=== PATIENT | female | born 1995 | race Caucasian/White ===

== ENCOUNTER 2020-08-18 11:55 | Emergency (ER) | payer BC, SELFPAY ==
[2020-08-18 11:59] VITALS: BP 142/76; PULSE 80; RESP 18; TEMP 36.6; O2SAT 97
--- NOTE | 2020-08-18 12:16 | ED.NAVMDI ---
HPI - Nausea/Vomiting/Diarrhea General Chief complaint: Nausea/Vomiting/Diarrhea Stated complaint: vomiting, Time Seen by Provider: 08/18/20 12:03 History of Present Illness HPI Narrative: Patient is a 25-year-old female who presents ER with nausea and vomiting. Ongoing over the last week. Recently diagnosed as being and prescribed Zofran. Zofran does not seem to be helping. Reports she is trying to drink water but is comes immediately out. No fevers or chills or sweats. No vaginal bleeding or discharge. No leakage of fluid. She has no lower abdominal pain. She sees Dr. Ni, she missed her appointment last week. She is a . Related Data Allergies Allergy/AdvReac Type Severity Reaction Status Date / Time No Known Allergies Allergy Verified 08/18/20 12:08 Review of Systems Review of Systems: All systems reviewed & are unremarkable except as noted in HPI and below Constitutional: Constitutional: Denies chills, Denies fever(s) and Denies weakness ENT: Denies nasal congestion and Denies sore throat Respiratory: Respiratory: Denies cough, Denies dyspnea and Denies wheezing Gastrointestinal: Gastrointestinal: Denies abdominal pain, Reports nausea and Reports vomiting Genitourinary: Genitourinary: Denies abnormal vaginal bleeding and Denies dysuria PMFSH Past Medical History Medical History (Updated 08/18/20 @ 14:09 by Raymond Ortiz MD) Healthy female adult Surgical History Surgical History (Updated 08/18/20 @ 12:20 by Raymond Ortiz MD) Previous section Social History Social History (Updated 08/18/20 @ 12:21 by Raymond Ortiz MD) Smoking status: Current every day smoker Exam Narrative: Exam Narrative: GENERAL: Well-appearing, well-nourished, and in no acute distress. HEAD: Normocephalic, atraumatic. ENT: Mucous membranes moist. CHEST: Clear to auscultation. No respiratory distress. HEART: Regular rate and rhythm. Normal peripheral pulses. ABDOMEN: Soft, nontender, nondistended. EXTREMITIES: Normal range of motion. No edema. SKIN: Warm, dry, no rash. NEURO: Alert and oriented x3. Course Course Emergency Course: Patient hydrated and given Phenergan. She is not taking vitamins and would like a prescription. Vital Signs Vital signs: Vital Signs Temperature 97.8 F 08/18/20 11:59 Pulse Rate 80 08/18/20 11:59 Respiratory Rate 18 08/18/20 11:59 Blood Pressure 142/76 H 08/18/20 11:59 Pulse Oximetry 97 08/18/20 11:59 Temperature 97.8 F 08/18/20 11:59 Pulse Rate 84 08/18/20 13:10 Respiratory Rate 18 08/18/20 11:59 Blood Pressure 115/67 08/18/20 13:10 Pulse Oximetry 97 08/18/20 11:59 MDM - Nausea/Vomiting/Diarrhea Lab Data Result diagrams: 08/18/20 12:04 08/18/20 12:04 Labs: Lab Results 08/18/20 08/18/20 08/18/20 Range/Units 12:04 12:04 12:17 WBC 7.0 (4.5-10.0) K/mm3 RBC 4.34 (4.2-5.4) M/mm3 Hgb 14.4 (12.0-15.0) g/dL Hct 41.1 (37.0-47.0) % MCV 94.7 (80-100) fl MCH 33.2 (26-34) pg MCHC 35.0 (32-36) g/dl RDW 13.0 (11.5-14.5) % Plt Count 369 (150-375) k/mm3 MPV 9.8 (7.4-10.4) fl Immature Gran % (Auto) 0.4 (0-0.5) % Neut % (Auto) 84.0 H (45.5-73.1) % Lymph % (Auto) 10.2 L (18.3-44.2) % [place] % (Auto) 5.3 (2.6-8.5) % Eos % (Auto) 0.0 (0-4.4) % Baso % (Auto) 0.1 L (0.2-1.2) % Lymph # (Auto) 1.87 (0.9-3.2) K/mm3 [place] # (Auto) 1.0 H (0.1-0.6) K/mm3 Eos # (Auto) 0.0 (0-0.3) K/mm3 Baso # (Auto) 0.0 (0.0-0.1) K/mm3 Abs Immat Gran (auto) 0.08 H (0.00-0.031) K/mm3 Absolute Neuts (auto) 15.4 H (1.3-6.7) K/mm3 Absolute Nucleated RBC 0.0 (0.0-0.012) K/mm3 Nucleated RBC % 0.0 (0.0-0.2) % Sodium 134 L (137-145) mmol/L Potassium 3.3 L (3.4-5.0) mmol/L Chloride 96 L (98-107) mmol/L Carbon Dioxide 25 (22-30) mmol/L Anion Gap 13 (8-16) mmol/L
[2020-08-18 12:17] LABS: Basophils Percent Auto 0.1 % (0.2-1.2); Hematocrit 41.1 % (37.0-47.0); Hemoglobin 14.4 g/dL (12.0-15.0); Immature Granulocyte Absolute 0.08 K/mm3 (0.00-0.031); Immature Granulocyte Percent A 0.4 % (0-0.5); Lymphocytes Absolute Auto 1.87 K/mm3 (0.9-3.2); Lymphocytes Percent Auto 10.2 % (18.3-44.2); Mean Corpuscular Hemoglobin 33.2 pg (26-34); Mean Corpuscular Volume 94.7 fl (80-100); Mean Platelet Volume 9.8 fl (7.4-10.4); Monocytes Percent Auto 5.3 % (2.6-8.5); Neutrophils Absolute Auto 15.4 K/mm3 (1.3-6.7); Platelet Count Result 369 k/mm3 (150-375); Red Blood Count 4.34 M/mm3 (4.2-5.4)
[2020-08-18] MEDS: SODIUM CHLORIDE 0.9% IV 1,000 ML 999 ML IV CONT (12:17)
[2020-08-18] MEDS: PROMETHAZINE HCL 25 MG/ML AMPUL 12.5 MG IV PUSH (12:17)
[2020-08-18 12:31] LABS: Alanine Aminotransferase 19 U/L (4-35); Albumin Level 4.5 g/dL (3.5-5.1); Alkaline Phosphatase 52 U/L (38-126); Anion Gap 13 mmol/L (8-16); Aspartate Amino Transferase 18 U/L (14-36); Bilirubin,Total 0.5 mg/dL (0.2-1.3); Blood Urea Nitrogen 8 mg/dL (7-17); Carbon Dioxide 25 mmol/L (22-30); Chloride 96 mmol/L (98-107); Estimated CRCL calculation 117 ml/min; Estimated Glomerular Filt Rate > 60; Glucose 117 mg/dL (65-105); Lipase 189 U/L (23-300); Potassium 3.3 mmol/L (3.4-5.0); Sodium 134 mmol/L (137-145)
[2020-08-18 12:50] LABS: Add Urine Microscopic? YES; Appearance Urine Cloudy (Clear); Bacteria Urine Trace /hpf; Bilirubin Urine Negative (Negative); Blood Urine Negative (Negative); Color Urine Yellow (Yellow); Glucose Urine UA Negative (Negative); Ketones Urine 1+ mg/dL (Negative); Leukocyte Esterase Ur Negative LEU/UL (Negative); Mucus Urine Moderate /lpf; Nitrate Urine Negative (Negative); Protein Urine 1+ mg/dL (Negative); RBC Urine 0-2 /hpf (0-2); Specific Grav Ur 1.019 (1.001-1.035); Squamous Epithelial Cell Urine Many /hpf (Few); Urobilinogen Urine Negative mg/dL (<2.0); WBC Urine 0-3 /hpf
[2020-08-18 13:06] VITALS: BP 113/64; PULSE 65
[2020-08-18 13:08] VITALS: BP 113/62; PULSE 60
[2020-08-18 13:10] VITALS: BP 115/67; PULSE 84
[2020-08-18 14:27] VITALS: BP 125/76; PULSE 68; RESP 18; O2SAT 99
== END 2020-08-18 14:28 | disposition home or self-care (01) ==
PROVIDERS: Emergency Medicine; Emergency Provider Emergency Medicine
DX: O21.9 Vomiting of pregnancy, unspecified (principal); Z3A.00 Weeks of gestation of pregnancy not specified
CPT/HCPCS: 36415; 80053; 81001; 81025; 83690; 85025; 96361; 96374; 99284; J2550; J7030

== ENCOUNTER 2020-09-22 10:29 | Emergency (ER) | payer BC, SELFPAY ==
--- NOTE | 2020-09-22 10:40 | ED.NAVMDI ---
HPI - Nausea/Vomiting/Diarrhea General Chief complaint: Nausea/Vomiting/Diarrhea Stated complaint: Vomiting, 16 Weeks Preg Time Seen by Provider: 09/22/20 10:39 Source: patient Mode of arrival: ambulatory Limitations: no limitations History of Present Illness HPI Narrative: Patient is a 25-year-old female, G4, P2, following with Dr. Enamorado, who is currently 16 weeks and presenting for evaluation of recurrent nausea and vomiting. Patient states she has been unable to tolerate any oral intake over the past 48 hours. She has had numerous episodes of nonbilious, nonbloody emesis. She reports dull, crampy-like pain throughout her abdomen. No focal right upper or right lower quadrant abdominal pain. Pt denies vaginal bleeding, discharge, loss of fluids. No contraction like pain. No other complications this , but she has struggled with nausea and vomiting throughout . She denies any diarrhea. No dysuria or hematuria. Pt has been taking zofran without relief of symptoms. Related Data Allergies Allergy/AdvReac Type Severity Reaction Status Date / Time No Known Allergies Allergy Verified 08/18/20 12:08 Review of Systems Review of Systems: Narrative: CONSTITUTIONAL: Denies fever, reports intermittent chills EYES: Denies visual changes, redness, or discharge. ENT: Denies rhinorrhea, congestion, sore throat, or otalgia. CARDIOVASCULAR: Denies chest pain, palpitations, or edema. RESPIRATORY: Denies cough or dyspnea. GASTROINTESTINAL: Reports cramping abdominal pain, nausea and vomiting GENITOURINARY: Denies dysuria or hematuria. SKIN: Denies rash or itching. MUSCULOSKELETAL: Denies back pain, joint pain, or myalgia. NEUROLOGIC: Denies headache, numbness, or weakness. [facility] Past Medical History Medical History Healthy female adult Nausea and vomiting during Surgical History Surgical History Previous section Social History Social History Smoking status: Current every day smoker Exam Narrative: Exam Narrative: GENERAL: Awake, alert, mildly uncomfortable appearing HEAD: Normocephalic, atraumatic. EYES: PERRLA and EOMI. ENT: Nares clear, no rhinorrhea or epistaxis. Mucous membranes moist. NECK: Supple. CHEST: No respiratory distress, breathing even and non labored HEART: Regular rate, sinus rhythm ABDOMEN: Fundus palpable below the umbilicus, non tender, no suprapubic tenderness EXTREMITIES: Normal range of motion. No edema. SKIN: Warm, dry, no rash. NEURO:No focal deficits. Alert and oriented x3 Course Vital Signs Vital signs: Vital Signs Temperature 36.1 C L 09/22/20 11:03 Pulse Rate 117 H 09/22/20 11:03 Respiratory Rate 18 09/22/20 11:03 Blood Pressure 127/102 H 09/22/20 11:03 Pulse Oximetry 100 09/22/20 11:03 Temperature 36.1 C L 09/22/20 11:03 Pulse Rate 76 09/22/20 14:41 Respiratory Rate 18 09/22/20 14:41 Blood Pressure 124/91 H 09/22/20 14:41 Pulse Oximetry 100 09/22/20 14:41 MDM - Nausea/Vomiting/Diarrhea MDM Narrative Medical decision making narrative: Patient presented for evaluation of nausea and vomiting in the setting of . Patient has struggled with this throughout , states last oral intake was over 2 days ago. Patient presents mildly tachycardic, no hypotension. No focal abdominal pain on exam. Bedside ultrasound utilized which showed good movement, heart rate 158. Laboratory results notable for leukocytosis. Urinalysis slightly concerning for possible UTI versus contaminated sample. Given patient is in and white count, we will go ahead and treat with a dose of IV antibiotics. No lactic acidosis. No signs of severe sepsis or septic shock. Patient was given IV fluids, dextrose/saline, Pepcid, Reglan with improvement in he
[2020-09-22] MEDS: SODIUM CHLORIDE 0.9% IV 1,000 ML 999 ML IV CONT ×2 (10:54→14:55)
[2020-09-22] MEDS: FAMOTIDINE 20 MG/2 ML VIAL IV PUSH (10:56)
[2020-09-22 10:57] LABS: Basophils Percent Auto 0.2 % (0.2-1.2); Hematocrit 40.2 % (37.0-47.0); Hemoglobin 14.2 g/dL (12.0-15.0); Immature Granulocyte Absolute 0.09 K/mm3 (0.00-0.031); Immature Granulocyte Percent A 0.5 % (0-0.5); Lymphocytes Absolute Auto 0.95 K/mm3 (0.9-3.2); Lymphocytes Percent Auto 5.7 % (18.3-44.2); Mean Corpuscular HGB Conc 35.3 g/dl (32-36); Mean Corpuscular Hemoglobin 33.3 pg (26-34); Mean Corpuscular Volume 94.4 fl (80-100); Mean Platelet Volume 9.9 fl (7.4-10.4); Monocytes Absolute Auto 0.2 K/mm3 (0.1-0.6); Monocytes Percent Auto 1.2 % (2.6-8.5); Neutrophils Absolute Auto 15.5 K/mm3 (1.3-6.7); Neutrophils Percent Auto 92.4 % (45.5-73.1); Platelet Count Result 303 k/mm3 (150-375); Red Blood Count 4.26 M/mm3 (4.2-5.4); Red Cell Distribution Width 12.9 % (11.5-14.5); White Blood Count 16.8 K/mm3 (4.5-10.0)
[2020-09-22] MEDS: diphenhydrAMINE HCl INJ 50 MG/ML VIAL 25 MG IV PUSH (10:58)
[2020-09-22] MEDS: METOCLOPRAMIDE HCL INJ 10 MG/2 ML VIAL IV PUSH (10:59)
[2020-09-22 11:03] VITALS: BP 127/102; PULSE 117; RESP 18; TEMP 36.1; O2SAT 100
[2020-09-22 11:04] LABS: Add Urine Microscopic? YES; Appearance Urine Cloudy (Clear); Bilirubin Urine Negative (Negative); Blood Urine Negative (Negative); Color Urine Yellow (Yellow); Glucose Urine UA 1+ mg/dL (Negative); Ketones Urine 2+ mg/dL (Negative); Leukocyte Esterase Ur 1+ LEU/UL (Negative); Mucus Urine Moderate /lpf; Nitrate Urine Negative (Negative); Protein Urine 2+ mg/dL (Negative); Specific Grav Ur 1.031 (1.001-1.035); Squamous Epithelial Cell Urine Many /hpf (Few); Urobilinogen Urine Negative mg/dL (<2.0)
[2020-09-22 11:09] LABS: Alanine Aminotransferase 14 U/L (4-35); Albumin Level 4.5 g/dL (3.5-5.1); Alkaline Phosphatase 56 U/L (38-126); Anion Gap 13 mmol/L (8-16); Aspartate Amino Transferase 19 U/L (14-36); Bilirubin,Total 0.5 mg/dL (0.2-1.3); Blood Urea Nitrogen 11 mg/dL (7-17); Calcium 9.6 mg/dL (8.4-10.2); Carbon Dioxide 23 mmol/L (22-30); Chloride 98 mmol/L (98-107); Estimated CRCL calculation 117 ml/min; Estimated Glomerular Filt Rate > 60; Glucose 136 mg/dL (65-105); Lipase 63 U/L (23-300); Potassium 3.6 mmol/L (3.4-5.0); Sodium 134 mmol/L (137-145)
[2020-09-22 12:12] LABS: Lactic Acid Reflex 1.5 mmol/L (0.7-2.1)
[2020-09-22] MEDS: DEXTROSE 5%/0.45% SOD CHL 1,000 ML 100 ML IV CONT (12:16)
[2020-09-22 12:30] VITALS: BP 126/74; PULSE 89; RESP 18; O2SAT 100
--- NOTE | 2020-09-22 14:39 | PC.NURSE ---
This RN to discharge pt. PT states she threw up the ice chips that were given to her. Informed Dr. Cope of this and she states she will go talk to pt.
[2020-09-22 14:41] VITALS: BP 124/91; PULSE 76; RESP 18; O2SAT 100
[2020-09-22] MEDS: PROMETHAZINE HCL 25 MG/ML AMPUL 12.5 MG IV PUSH (14:55)
[2020-09-22 16:39] LABS: Amphetamine Screen Urine Negative (Negative); Barbiturate Screen Urine Negative (Negative); Benzodiazepines Screen Urine Negative (Negative); Cannabinoid Screen Urine Positive (Negative); Cocaine Screen Urine Negative (Negative); Methadone Screen Urine Negative (Negative); Opiate Screen Urine Negative (Negative); Phencyclidine Screen Urine Negative (Negative)
== END 2020-09-22 16:43 | disposition home or self-care (01) ==
PROVIDERS: Emergency Provider Emergency Medicine
DX: O21.1 Hyperemesis gravidarum with metabolic disturbance (principal); O23.12 Infections of bladder in pregnancy, second trimester; O99.332 Smoking (tobacco) complicating pregnancy, second trimester; F17.200 Nicotine dependence, unspecified, uncomplicated; Z3A.16 16 weeks gestation of pregnancy
CPT/HCPCS: 36415; 80053; 80307; 81001; 83605; 83690; 85025; 87040; 96361; 96365; 96375; 99284; J0696; J1200; J2550; J2765; J7030

== ENCOUNTER 2020-11-03 08:40 | Outpatient (CLI) | payer BC, SELFPAY ==
--- NOTE | ~2020-11-03 | US_ITS ---
EXAMINATION: US OB /maternal detail EXAM DATE: 11/03/2020 09:57 INDICATION: Routine evaluation. 2nd trimester. TECHNIQUE: Pelvic obstetrical transabdominal sonogram was performed by a technologist. There are mu ltiple grayscale and Doppler images available for interpretation. There are no earlier studies of is gestation for comparison. FINDINGS: There is a single fetus identified in vertex presentation with a heart rate of 157 beats pe r minute. The placenta is located in the anterior previa position, partially covering the internal ce rvical os. There is no sonographic evidence of retroplacental hemorrhage identified. BIOMETRIC DATA: Biparietal diameter (BPD): 5.8cm ----------------> 23 weeks 6 days. Head circumference (HC): 22.5 cm ----------------> 24 weeks 4 days. Abdominal circumference (AC): 18.4 cm ----------> 23 weeks 1 day. Femur length (FL): 4.3 cm --------------------------> 24 weeks 0 days. These measurements are discordant, mildly elevated HC/AC ratio. HC/AC ratio is 1.22 (The 5th -- 95th percentile range is 1.05-1.21. Estimated weight is 617 g +/- 92 g. This is the 53rd percentile when the currently reported cl inical gestation age 23 weeks 3 days, clinical estimated date of delivery ([facility]-OPE) 02/27/2021 is used . estimated gestational age based on measurements from this exam is 23 weeks 6 days, with an es timated date of delivery ([facility]A) 02/24. ANATOMIC SURVEY: The following anatomy is identified and is sonographically normal in appearance: CTL-spine Four-chamber heart Diaphragm Stomach Kidneys Bladder Three-vessel cord Cord insertion The following anatomy was not well visualized: Cerebral ventricles Cerebellum Cisterna magna Nuchal fold IMPRESSION: 1. Single fetus in vertex presentation with heart rate 157 beats per minute. 2. Anterior previa placental position, margin is covering the internal cervical os. 3. Estimated weight of 617 grams, 53rd percentile using the currently reported clinical gestat ion age of 23 weeks 3 days, NASH(OPE) 02/27. 4. Elevated HC/AC ratio. 5. Incomplete anatomic survey; head poorly evaluated. Reviewed, dictated and finalized at location A. IMPRESSION: 1. Single fetus in vertex presentation with heart rate 157 beats per minute. 2. Anterior previa placental position, margin is covering the internal cervica l os. 3. Estimated weight of 617 grams, 53rd percentile using the currently re ported clinical gestation age of 23 weeks 3 days, NASH(OPE) 02/27. 4. Elevated HC/AC ratio. 5. Incomplete anatomic survey; head poorly evaluated.
== END 2020-11-03 08:41 | disposition home or self-care (01) ==
PROVIDERS: Visit Provider Obstetrics & Gynecology
DX: Z34.92 Encounter for supervision of normal pregnancy, unspecified, second trimester (principal); Z3A.00 Weeks of gestation of pregnancy not specified
CPT/HCPCS: 76805

== ENCOUNTER 2020-12-27 12:49 | Emergency (ER) | payer BC, SELFPAY ==
[2020-12-27] VITALS (8 sets, daily range): BP systolic 114–132; BP diastolic 54–71; PULSE 65–88; RESP 16–18; TEMP 36.4; O2SAT 96–100
--- NOTE | 2020-12-27 13:32 | ED.GENADULT ---
HPI - General Adult General Chief complaint: Nausea/Vomiting/Diarrhea Stated complaint: ongoing vomiting. Time Seen by Provider: 12/27/20 13:02 History of Present Illness HPI narrative: Patient is a 25-year-old female who is 31 weeks gestation who presents ER with nausea and vomiting. Ongoing for the last day. Reports she has vomited innumerable number of times. Reports she also has acid reflux associated with this. No loose stools. She has been taking promethazine without relief at home. Has had issues with vomiting that is caused to be hypokalemic in the past. She reports she is starting to get some tingling in her fingers. No muscle cramps or focal weakness. She has no urinary frequency urgency or dysuria. She has no vaginal bleeding. She sees Dr. Enamorado. Related Data Allergies Allergy/AdvReac Type Severity Reaction Status Date / Time No Known Allergies Allergy Verified 12/27/20 13:39 Review of Systems Review of Systems: All systems reviewed & are unremarkable except as noted in HPI and below Constitutional: Constitutional: Denies chills, Reports fatigue and Denies fever(s) Gastrointestinal: Gastrointestinal: Denies abdominal pain, Denies diarrhea, Reports nausea and Reports vomiting Genitourinary: Genitourinary: Denies abnormal vaginal bleeding, Denies nocturia and Denies vaginal discharge Musculoskeletal: Musculoskeletal: Denies myalgias, Denies joint swelling and Denies muscle cramps Neurologic: Denies focal weakness and Denies numbness Comments: tingling in hands PMFSH Past Medical History Medical History Healthy female adult Nausea and vomiting during Surgical History Surgical History Previous section Social History Social History Smoking status: Current every day smoker Exam Narrative: Exam Narrative: GENERAL: Well-appearing, well-nourished, and in no acute distress. HEAD: Normocephalic, atraumatic. ENT: Mucous membranes moist. CHEST: Clear to auscultation. No respiratory distress. HEART: Regular rate and rhythm. Normal peripheral pulses. ABDOMEN: Soft, nontender, gravid. EXTREMITIES: Normal range of motion. No edema. NEURO: Alert and oriented x3. PSYCH: Normal mood and affect. Course Course Emergency Course: Patient tolerating food and fluids. No emesis here. She has follow-up with her OB in 2 days. Discharge home with [facility]. Father has famotidine that he can give to the patient. Vital Signs Vital signs: Vital Signs Temperature 97.5 F L 12/27/20 12:52 Pulse Rate 66 12/27/20 12:52 Respiratory Rate 18 12/27/20 12:52 Blood Pressure 120/67 12/27/20 12:52 Pulse Oximetry 100 12/27/20 12:52 Temperature 97.5 F L 12/27/20 12:52 Pulse Rate 86 12/27/20 16:23 Respiratory Rate 18 12/27/20 16:23 Blood Pressure 129/67 12/27/20 16:23 Pulse Oximetry 98 12/27/20 16:23 Medical Decision Making Vital Signs Vital Signs: Vital Signs Temperature 97.5 F L 12/27/20 12:52 Pulse Rate 66 12/27/20 12:52 Respiratory Rate 18 12/27/20 12:52 Blood Pressure 120/67 12/27/20 12:52 Pulse Oximetry 100 12/27/20 12:52 Temperature 97.5 F L 12/27/20 12:52 Pulse Rate 86 12/27/20 16:23 Respiratory Rate 18 12/27/20 16:23 Blood Pressure 129/67 12/27/20 16:23 Pulse Oximetry 98 12/27/20 16:23 Lab Data Result diagrams: 12/27/20 13:40 12/27/20 13:40 Labs: Lab Results 12/27/20 12/27/20 12/27/20 Range/Units 13:40 13:40 13:40 WBC 14.7 H (4.5-10.0) K/mm3 RBC 3.71 L (4.2-5.4) M/mm3 Hgb 12.1 (12.0-15.0) g/dL Hct 35.2 L (37.0-47.0) % MCV 94.9 (80-100) fl MCH 32.6 (26-34) pg MCHC 34.4 (32-36) g/dl RDW 12.4 (11.5-14.5) % Plt Count 229 (150-375) k/mm3 MPV 10.7 H (7.4-10.4) fl Immatu
[2020-12-27] MEDS: ONDANSETRON INJ 4 MG/2 ML VIAL IV PUSH (13:43)
[2020-12-27] MEDS: SODIUM CHLORIDE 0.9% IV 1,000 ML 999 ML IV CONT (13:43)
[2020-12-27] MEDS: FAMOTIDINE 20 MG/2 ML VIAL IV PUSH (13:43)
[2020-12-27 13:48] LABS: Basophils Percent Auto 0.1 % (0.2-1.2); Hematocrit 35.2 % (37.0-47.0); Hemoglobin 12.1 g/dL (12.0-15.0); Immature Granulocyte Absolute 0.07 K/mm3 (0.00-0.031); Immature Granulocyte Percent A 0.5 % (0-0.5); Lymphocytes Absolute Auto 0.97 K/mm3 (0.9-3.2); Lymphocytes Percent Auto 6.6 % (18.3-44.2); Mean Corpuscular HGB Conc 34.4 g/dl (32-36); Mean Corpuscular Hemoglobin 32.6 pg (26-34); Mean Corpuscular Volume 94.9 fl (80-100); Mean Platelet Volume 10.7 fl (7.4-10.4); Monocytes Absolute Auto 0.5 K/mm3 (0.1-0.6); Monocytes Percent Auto 3.1 % (2.6-8.5); Neutrophils Absolute Auto 13.1 K/mm3 (1.3-6.7); Neutrophils Percent Auto 89.7 % (45.5-73.1); Platelet Count Result 229 k/mm3 (150-375); Red Blood Count 3.71 M/mm3 (4.2-5.4); Red Cell Distribution Width 12.4 % (11.5-14.5); White Blood Count 14.7 K/mm3 (4.5-10.0)
[2020-12-27 13:53] LABS: Add Urine Microscopic? YES; Appearance Urine Clear (Clear); Bacteria Urine Trace /hpf; Bilirubin Urine Negative (Negative); Blood Urine Negative (Negative); Color Urine Yellow (Yellow); Glucose Urine UA Negative (Negative); Ketones Urine 2+ mg/dL (Negative); Leukocyte Esterase Ur Negative LEU/UL (Negative); Mucus Urine Few /lpf; Nitrate Urine Negative (Negative); Protein Urine 2+ mg/dL (Negative); Squamous Epithelial Cell Urine Few /hpf (Few); Urobilinogen Urine Negative mg/dL (<2.0); WBC Urine 0-3 /hpf
[2020-12-27 14:06] LABS: Alanine Aminotransferase 10 U/L (4-35); Albumin Level 3.9 g/dL (3.5-5.1); Alkaline Phosphatase 110 U/L (38-126); Anion Gap 11 mmol/L (8-16); Aspartate Amino Transferase 17 U/L (14-36); Bilirubin,Total 0.5 mg/dL (0.2-1.3); Blood Urea Nitrogen 10 mg/dL (7-17); Calcium 8.8 mg/dL (8.4-10.2); Carbon Dioxide 19 mmol/L (22-30); Chloride 105 mmol/L (98-107); Estimated CRCL calculation 131 ml/min; Estimated Glomerular Filt Rate > 60; Glucose 111 mg/dL (65-105); Lipase 55 U/L (23-300); Potassium 3.3 mmol/L (3.4-5.0); Sodium 135 mmol/L (137-145)
[2020-12-27] MEDS: SODIUM CHLORIDE 0.9% IV 50 ML 500 ML (15:15)
[2020-12-27] MEDS: PROMETHAZINE HCL 25 MG/ML AMPUL 12.5 MG IV PUSH (15:15)
== END 2020-12-27 17:02 | disposition home or self-care (01) ==
PROVIDERS: Emergency Provider Emergency Medicine; PCP Internal Medicine
DX: O21.2 Late vomiting of pregnancy (principal); Z3A.31 31 weeks gestation of pregnancy
CPT/HCPCS: 36415; 80053; 81001; 81025; 83690; 85025; 96361; 96374; 96375; 99284; J2405; J2550; J7030

== ENCOUNTER 2021-01-01 10:27 | Observation (INO) | payer BC, SELFPAY ==
[2021-01-01] VITALS (33 sets, daily range): BP systolic 99–124; BP diastolic 51–62; PULSE 69–98; RESP 16; TEMP 36.9; O2SAT 100; BMI 21.2
[2021-01-01] MEDS: TERBUTALINE SULFATE 1 MG/ML VIAL 0.25 MG SUB-Q (11:10)
[2021-01-01] MEDS: LACTATED RINGERS 1,000 ML 75 ML IV CONT (11:29)
[2021-01-01 11:30] LABS: Hematocrit 35.5 % (37.0-47.0); Hemoglobin 12.2 g/dL (12.0-15.0); Mean Corpuscular HGB Conc 34.4 g/dl (32-36); Mean Corpuscular Hemoglobin 32.9 pg (26-34); Mean Corpuscular Volume 95.7 fl (80-100); Mean Platelet Volume 9.8 fl (7.4-10.4); Platelet Count Result 240 k/mm3 (150-375); Red Blood Count 3.71 M/mm3 (4.2-5.4); Red Cell Distribution Width 12.4 % (11.5-14.5); White Blood Count 13.9 K/mm3 (4.5-10.0)
--- NOTE | 2021-01-01 11:30 | PC.NURSE ---
See OBIX for further documentation.
--- NOTE | 2021-01-01 11:30 | OBADM ---
This patient, Fabi Padilla, admitted to the OB room OB Post 117 at 1027 for observation for vaginal bleeding. Patient/family oriented to hospital policies and general routines including ID bracelet, bed and alarms, visiting hours, pain management, procedures, bathroom and other care routines, personal items, smoking policy, room service/diet, and visiting hours. Patient/Family are encouraged to report perceived risks to care and to ask questions if they do not understand what they are told or what they should do.
[2021-01-01] MEDS: MAGNESIUM SULF 4 GM/WATER100ML 4 GM/100 ML BAG IVPB (11:32)
--- NOTE | 2021-01-01 11:33 | PM.IMHP ---
H&P: HPI History of Present Illness Date/Time: 01/01/21 11:33 Chief Complaint: abdominal pain and vaginal bleeding Narrative: Fabi Padilla is a 25yo @ 31.6wks who presented to L&D with painful contractions since 430am and vaginal bleeding that started at 930; large volume-- filled the toilet bowl. On arrival to L&D she was found to be george every 2-3 min; moderate in intensity; 6/10 pain scale. She has not been actively bleeding ~5cc on the pad (had previously passed small orange size clot w/ small amount of blood on labia/upper legs). She was given terb x1 while obtaining access to give magnesium and ampicillin; also given ANCS x1. Contractions have spaced out nicely. Speculum exam reviewed ~3cc of blood in the vault; cervix visually 1-2cm dilated, no active bleeding. Baby has been category 2 tracing; overall reassuring. complicated by: - H/o c/s x2 - Anterior placenta previa; abnormal placentation has not been ruled out - H/o PTD x1 - Minimal care; 3 visits in total - H/o meth abuse; denies any this -- does report MJ use - Complex social history; does not have custody of two children - Bipolar/anxiety/depression - Mild intermittent asthma - IBS Review of Systems Review of Systems: All systems reviewed & are unremarkable except as noted in HPI and below (HPI) [facility] Past Medical History Medical History Healthy female adult Nausea and vomiting during Surgical History Surgical History Previous section Social History Social History Smoking status: Current every day smoker Meds Home Medications and Allergies Home Medications Medication Instructions Recorded Confirmed Type [id number] 1 cap PO DAILY #30 cap 08/18/20 Rx [One-A-Day -1] ondansetron HCl [Zofran] 4 mg PO Q8H #14 tablet 12/27/20 Rx Allergies Allergy/AdvReac Type Severity Reaction Status Date / Time No Known Allergies Allergy Verified 12/27/20 13:39 Vital Signs Vital Signs - 24 hr 01/01/21 11:01 01/01/21 11:06 01/01/21 11:11 Pulse Rate 74 73 Blood Pressure 113/57 L 113/54 L Pulse Oximetry 100 100 01/01/21 11:16 01/01/21 11:21 01/01/21 11:26 Pulse Rate Blood Pressure Pulse Oximetry 100 100 100 01/01/21 11:31 Pulse Rate 91 Blood Pressure 99/53 L Pulse Oximetry 100 Exam Const: General: cooperative, healthy appearing, comfortable and no acute distress HENMT: Teeth and gingiva: poor dentition Resp: Effort & Inspection: normal respiratory effort and able to speak in complete sentences Cardio: Rate: regular rate GI: GI Palp: No abdominal tenderness and Yes Soft to palpation : Other: FHT's: 155/ mod toyin/ + accels/ occasional mild variables - cat 2, reassuring Ctxs intially q2-3min, now 2 noted in 20min speculum exam showed ~3cc of blood in vault; cervix 1-2cm dilated, no active bleeding Skin: General skin exam: normal color Neuro: General: patient oriented x3 Extrem: General: normal to inspection Psych: Attitude: cooperative Assessment and Plan Assessment and plan (1) Previous section: Code(s): Z98.891 - History of uterine scar from previous surgery Status: Acute (2) Placenta previa: Qualifiers: Trimester: third trimester Qualified Code(s): O44.03 - Complete placenta previa NOS or without hemorrhage, third trimester Code(s): O44.00 - Complete placenta previa NOS or without hemorrhage, unspecified trimester Status: Acute (3) Vaginal bleeding during : Code(s): O46.90 - Antepartum hemorrhage, unspecified, unspecified trimester Status: Acute (4) contractions: Code(s): O47.9 - False labor, unspecified Status: Acute Additional Plan - Pt evaluat
[2021-01-01] MEDS: BETAMETHASONE SOD PHOS/ACETATE 30 MG/5 ML VIAL 12 MG IM (11:36)
[2021-01-01] MEDS: AMPICILLIN 2 GM/NS 100 ML 2 GM/100 ML BAG IVPB (11:47)
[2021-01-01] MEDS: MAGNESIUM SULF 20GM/WATER500ML 500 ML 50 MG IV CONT (12:02)
== END 2021-01-01 14:10 | disposition short-term general hospital (02) ==
LOC: ANHLDR 19:42 → ANHOBPP 01-02 12:38
PROVIDERS: Admitting Provider Obstetrics & Gynecology; PCP Internal Medicine; Visit Provider Obstetrics & Gynecology
DX: O44.13 Complete placenta previa with hemorrhage, third trimester (principal); O47.03 False labor before 37 completed weeks of gestation, third trimester; Z3A.31 31 weeks gestation of pregnancy; Z98.891 History of uterine scar from previous surgery
CPT/HCPCS: 36415; 85027; 86850; 86900; 86901; 96365; 96366; 96368; 96372; G0378; G0379; J0290; J0702; J3105; J3475; J7120

== ENCOUNTER 2021-01-13 15:00 | Outpatient (RCR) | payer BC, SELFPAY ==
--- NOTE | ~2021-01-13 | US_ITS ---
EXAMINATION: US OB BPP wo non-stress EXAM DATE: 01/13/2021 16:08 INDICATION: BPP for IUGR. 3rd trimester. TECHNIQUE: Pelvic obstetrical transabdominal sonogram was performed by a technologist. There are mu ltiple grayscale and Doppler images available for interpretation. Comparison is made to prior examina tion from 11/03/2020. FINDINGS: There is a single fetus identified in vertex presentation with a heart rate of 152 beats pe r minute. The placenta is located in the anterior previa position, covering the internal cervical os. There is no sonographic evidence of retroplacental hemorrhage identified. BIOPHYSICAL PROFILE (performed by the technologist) breathing (30 sec sustained breathing in 30 minutes): 2 out of 2 movement (3 gross body movements in 30 minutes): 2 out of 2 tone (one episode of ttxhljj-wzvleehsm-yeieqsb limb movement): 2 out of 2 Amniotic fluid pocket (2 cm): 2 out of 2 Total score: 8 out of 8 IMPRESSION: 1. Persistent placenta previa. 2. Single fetus with heart rate of 152 bpm. 3. Normal biophysical profile score of 8 out of 8. Reviewed, dictated and finalized at location A.
[2021-01-13 16:19] VITALS: BP 113/57; PULSE 85
== END 2021-01-30 15:22 | disposition home or self-care (01) ==
LOC: ANHOBOP 15:00
PROVIDERS: PCP Internal Medicine; Visit Provider Obstetrics & Gynecology
DX: O36.5930 Maternal care for other known or suspected poor fetal growth, third trimester, not applicable or unspecified (principal); O44.03 Complete placenta previa NOS or without hemorrhage, third trimester; Z3A.33 33 weeks gestation of pregnancy
CPT/HCPCS: 59025; 76819

== ENCOUNTER 2021-01-14 08:22 | Inpatient (IN) | payer BC, SELFPAY ==
[2021-01-14] VITALS (14 sets, daily range): BP systolic 98–116; BP diastolic 48–77; PULSE 63–88; RESP 16; TEMP 36.6–37.2; O2SAT 99–100; BMI 23.4
[2021-01-14] MEDS: OXYTOCIN 30 UNITS/NS 500 ML 30 UNITS/500 ML BAG 999 UNITS IV CONT (08:29)
--- NOTE | 2021-01-14 09:00 | LDADM ---
This patient, Fabi Padilla, was admitted to Labor/Delivery/Recovery 106 on 01/14/21 at 08:22 per [facility] Department ambulance after home delivery at 0759 today of a viable female infant. Apgars per paramedics were 7 & 8. 33 5/7 wks gestation. Plans for recovery and pain management were discussed with patient. Patient oriented to hospital policies and general routines including ID bracelet, bed and alarms, visiting hours, pain management, procedures, bathroom and other care routines, personal items, smoking policy, room service/diet and guest tray routines, infant security routines, and visiting hours. Patient are encouraged to report perceived risks to care and to ask questions if they do not understand what they are told or what they should do. See OBIX for further documentation.
[2021-01-14] MEDS: IBUPROFEN 600 MG TABLET PO ×3 (09:05→23:38)
[2021-01-14] MEDS: OXYTOCIN 30 UNITS/NS 500 ML 30 UNITS/500 ML BAG 125 UNITS IV CONT (09:05)
--- NOTE | 2021-01-14 09:24 | PM.IMHP ---
H&P: HPI History of Present Illness Date/Time: 01/14/21 09:24 25yo at 33w5d presented to L&D after an incidental home attended by EMS. She states she started to have contractions in the morning and her water broke. She called EMS and by the time the EMS arrived, baby was . Vaignal delivery by EMS at 0759. She was then transferred to L&D for further management. Placenta was delivered on L&D attended by the L&D nurses. Currently she states she is feeling a lot of cramping. There was a concern of placenta previa early in , but most recent US done at [place] in the last 2 weeks showed no previa. Chief Complaint: home vaginal delivery Review of Systems Constitutional: Constitutional: Reports no additional constitutional complaints ENT: Reports mouth pain (tooth abscess) Cardiovascular: Cardiovascular: Reports no additional cardiovascular complaints Respiratory: Respiratory: Reports no additional respiratory complaints Gastrointestinal: Gastrointestinal: Reports GI cramping Genitourinary: Comments: vaginal bleeding Musculoskeletal: Musculoskeletal: Reports no additional musculoskeletal complaints Integumentary/Breasts: Skin/Breast: Reports system reviewed and no additional complaints, except as docu Neurologic: Reports system reviewed and no additional complaints, except as documented Psychiatric: Psychiatric: Reports no additional psychiatric complaints Endocrine: Endocrine: Reports no additional endocrine complaints Hematologic/Lymphatic: Hematologic/Lymphatic: Reports no additional hematologic/lymphatic complaints Allergic/Immunologic: Allergic/Immunologic: Reports no additional allergic/immunologic complaints PMF Past Medical History Medical History Healthy female adult Nausea and vomiting during Surgical History Surgical History Previous section Social History Social History (Updated 01/14/21 @ 09:29 by Humble Lemus DO) Smoking status: Current every day smoker Other substance usage details: Marijuana Last use: 1 day ago Meds Home Medications and Allergies Home Medications Medication Instructions Recorded Confirmed Type M- Plus 1 tablet PO DAILY 01/01/21 01/01/21 History ondansetron HCl [Zofran] 4 mg PO Q8H PRN 01/01/21 01/01/21 History Allergies Allergy/AdvReac Type Severity Reaction Status Date / Time No Known Allergies Allergy Verified 12/27/20 13:39 Vital Signs Vital Signs - 24 hr 01/14/21 08:35 01/14/21 08:45 01/14/21 09:00 Pulse Rate 88 75 78 Blood Pressure 116/48 L 116/59 L 113/62 01/14/21 09:15 Pulse Rate 87 Blood Pressure 113/62 Exam Const: General: cooperative, comfortable and well developed HENMT: Teeth and gingiva: poor dentition and other (swelling of right lower jaw) Resp: Effort & Inspection: normal respiratory effort, able to speak in complete sentences and audible wheezes Cardio: Rate: regular rate : OB/external & speculum: other (bilateral labial lacerations) Neuro: General: oriented to person, oriented to place and oriented to time Psych: Appearance: grossly normal Mental Status: mental status grossly normal Affect: normal affect Attitude: cooperative Thought process: Normal thought process present Thought content: Yes Normal thought content present Insight: Good insight present (Psych) Judgement: Good judgement present (Psych) Assessment and Plan Assessment and plan (1) delivery after section: Code(s): O60.10X0 - labor with delivery, unspecified trimester, not applicable or unspecified; O34.219 - Maternal care for unspecified type scar from previous delivery Status: Acute Assessment and Plan: Admit to L&D Routine post care Pain management (2) Previous section: Code(s): Z98.891 - Histo
--- NOTE | 2021-01-14 09:32 | WPDHPUPDATE1 ---
History and Physical Update Update Date/Time: 01/14/21 09:32 History and Physical has been reviewed, including an updated exam of the patient. There are NO changes in the patient's condition. Risks, benefits, and alternatives have been discussed and questions answered. Patient agrees to proceed with procedure.
--- NOTE | 2021-01-14 09:32 | PM.OBPRVD ---
OB - Delivery Note Procedure Delivery date: 01/14/21 Procedure: Left labial laceration repair after spontaneous vaginal after section at home events: Previous Intrapartal events: Precipitous Labor < 3 hours Induction method: none Delivery monitor: none Route of delivery: (at home) Laceration Description: Labial (bilateral labial. Right hemostatic. Left labial laceration repaired.) Delivery repair: vicryl Specimen: Yes Quantitative Blood Loss (ml): 113 Anesthesia type: Local Disposition: floor Narrative: Patient had precipitous vaginal after at home, which was attended by EMS. She was transferred to L&D where she delivered the placenta spontaneously attended by L&D nurses. Upon my arrival to L&D, she was examined for any lacerations and bilateral labial lacerations were noted. Right labial laceration was hemostatic. Left labial laceration was noted to be bleeding and hemostasis not readily obtained by pressure. Local anesthetic with lidocaine was used. Repair was made with 3-0 Vicryl in a [id number] style stitch. Good hemostasis was noted. Patient tolerated the procedure well. All sponge and instrument counts were correct at the end of the procedure. Baby Date of : 01/14/21 Time of : 07:59 Weeks of gestation at delivery: 33 Infant gender: Female score one minute: 7 score five minutes: 8
[2021-01-14 09:59] LABS: Basophils Percent Auto 0.2 % (0.2-1.2); Eosinophils Percent Auto 0.1 % (0-4.4); Hematocrit 32.5 % (37.0-47.0); Immature Granulocyte Absolute 0.13 K/mm3 (0.00-0.031); Immature Granulocyte Percent A 0.7 % (0-0.5); Lymphocytes Absolute Auto 1.07 K/mm3 (0.9-3.2); Mean Corpuscular HGB Conc 33.8 g/dl (32-36); Mean Corpuscular Hemoglobin 32.4 pg (26-34); Mean Corpuscular Volume 95.9 fl (80-100); Mean Platelet Volume 9.7 fl (7.4-10.4); Monocytes Absolute Auto 0.9 K/mm3 (0.1-0.6); Monocytes Percent Auto 4.7 % (2.6-8.5); Neutrophils Absolute Auto 15.8 K/mm3 (1.3-6.7); Neutrophils Percent Auto 88.3 % (45.5-73.1); Platelet Count Result 219 k/mm3 (150-375); Red Blood Count 3.39 M/mm3 (4.2-5.4); Red Cell Distribution Width 12.5 % (11.5-14.5); White Blood Count 17.9 K/mm3 (4.5-10.0)
[2021-01-14 10:51] LABS: HIV 1/2 Ab P24 Ag Result Negative (Negative)
[2021-01-14] MEDS: BENZOCAINE 20% AER SPR (*SP) 56 GM CAN 1 SPRAY TOPICAL (11:19)
[2021-01-14] MEDS: WITCH HAZEL 40 PADS 1 PAD TOPICAL (11:19)
[2021-01-14 12:03] LABS: Amphetamine Screen Urine Negative (Negative); Barbiturate Screen Urine Negative (Negative); Benzodiazepines Screen Urine Negative (Negative); Cannabinoid Screen Urine Positive (Negative); Cocaine Screen Urine Negative (Negative); Methadone Screen Urine Negative (Negative); Opiate Screen Urine Negative (Negative); Phencyclidine Screen Urine Negative (Negative)
[2021-01-14] MEDS: PENICILLIN V POTASSIUM 250 MG TABLET 500 MG PO ×3 (13:11→23:37)
--- NOTE | 2021-01-14 14:10 | PC.NURSE ---
1403-Patient transferred to post room #284 via wheelchair. Support person present. Oriented to unit, room, information board, rooming in, admission packet and security measures. Patient verbalizes understanding.
--- NOTE | 2021-01-14 15:06 | PCCCNOTE ---
Care Coordination Note. Patient referred to Care Coordination for positive UDS January 01 for THC and amphetamines at visit at [facility]. Pt.'s record shows positive THC and amphetamines from July as well. She also delivered baby at home by EMS at 33weeks along. Pt. denies amphetamine use for a few years, but reports marijuana use is to calm her down. Pt. reports living upstairs from her 4 year old, Sravan's great grandfather. She also has an almost 13 year old, Sivan, that lives with Sivan's father. Pt. reports previous [facility] involvement in 2019 when she was using amphetamines, but went to rehab and has supposedly not been using meth anymore. Pt. has link, but not setup with [facility]. She plans to get setup with them. Pt. reports good family support from her mother, sister, and grandparent (not biological). Spoke with Fabi Da Silva from [facility] hotline (Intake ID [id number]) and reports will take pt.'s situation as information only. She reports to call back if baby experiences withdrawal or meconium comes back with something other than marijuana. Pt. and baby UDS only positive for marijuana on admission. Staffed case with my mechanics supervisor, Jodie, and we called material control specialist, Dr. Wallace, who reports would like situation investigated. Spoke again with Fabi Ovalles from [facility] and she will escalate it to her mechanics supervisor and let me know if anything changes. RNChaparrita, aware. Will follow.
--- NOTE | 2021-01-14 17:35 | PC.NURSE ---
1730-RN took patient via wheelchair to 1st floor nursery to visit baby.
--- NOTE | 2021-01-14 18:04 | PC.NURSE ---
1800-Patient returned via wheelchair from visiting baby in 1st floor nursery.
[2021-01-15] VITALS: BP 108/66; PULSE 66; RESP 16; TEMP 36.7; O2SAT 100
[2021-01-15 04:00] VITALS: BP 120/87; PULSE 61; RESP 16; TEMP 36.9; O2SAT 100
[2021-01-15] MEDS: IBUPROFEN 600 MG TABLET PO ×3 (05:22→23:41)
[2021-01-15] MEDS: PENICILLIN V POTASSIUM 250 MG TABLET 500 MG PO ×4 (05:22→23:41)
[2021-01-15 05:56] LABS: Hematocrit 28.8 % (37.0-47.0); Hemoglobin 9.4 g/dL (12.0-15.0)
--- NOTE | 2021-01-15 06:28 | PM.OBDSVD ---
DS: Admitting Diagnosis Admitting Diagnosis Admitting Diagnosis: OB - DS: Summary OB Procedures : None OB Procedures Intrapartum: Spontaneous Vag Delivery OB Procedures: : None Time Spent with Patient Time attestation: Total time spent providing and/or coordinating discharge services: DS: Data Data Completed and Pending Pending studies at discharge: Pending at discharge 01/14/21 08:29 Surgical [PTH] Routine Labs on day of discharge: Labs from last 24 hours 01/15/21 01/14/21 01/14/21 04:24 09:43 09:43 WBC RBC Hgb 9.4 L Hct 28.8 L MCV MCH MCHC RDW Plt Count MPV Immature Gran % (Auto) Neut % (Auto) Lymph % (Auto) Vilas % (Auto) Eos % (Auto) Baso % (Auto) Lymph # (Auto) Vilas # (Auto) Eos # (Auto) Baso # (Auto) Abs Immat Gran (auto) Absolute Neuts (auto) Absolute Nucleated RBC Nucleated RBC % Urine Opiates Screen Negative Urine Methadone Screen Negative Ur Barbiturates Screen Negative Ur Phencyclidine Scrn Negative Ur Amphetamine Screen Negative U Benzodiazepines Scrn Negative Urine Cocaine Screen Negative U Cannabinoids Screen Positive A RPR HIV 1&2 Ab/P24 Ag 4thGn Negative Blood Type Antibody Screen 01/14/21 01/14/21 01/14/21 09:43 09:43 09:43 WBC 17.9 H RBC 3.39 L Hgb 11.0 L Hct 32.5 L MCV 95.9 MCH 32.4 MCHC 33.8 RDW 12.5 Plt Count 219 MPV 9.7 Immature Gran % (Auto) 0.7 H Neut % (Auto) 88.3 H Lymph % (Auto) 6.0 L Vilas % (Auto) 4.7 Eos % (Auto) 0.1 Baso % (Auto) 0.2 Lymph # (Auto) 1.07 Vilas # (Auto) 0.9 H Eos # (Auto) 0.0 Baso # (Auto) 0.0 Abs Immat Gran (auto) 0.13 H Absolute Neuts (auto) 15.8 H Absolute Nucleated RBC 0.0 Nucleated RBC % 0.0 Urine Opiates Screen Urine Methadone Screen Ur Barbiturates Screen Ur Phencyclidine Scrn Ur Amphetamine Screen U Benzodiazepines Scrn Urine Cocaine Screen U Cannabinoids Screen RPR Pending HIV 1&2 Ab/P24 Ag 4thGn Blood Type AB Positive Antibody Screen Negative Discharge Plan Discharge Discharging Clinician: Jez Enamorado Anticipated Discharge Date/Time: 01/16/21 13:00 Patient Disposition: Home, Self-Care Activity: as tolerated Diet: as tolerated Patient Instructions: Antibiotic Form Stand Alone Forms: General Discharge Information Follow-up/Referrals: Jez Enamorado MD [Physician] - 3 Weeks Discharge Medications: New ibuprofen 600 mg Tablet 600 mg PO Q6H PRN (Reason: Cramping) Qty: 30 RF: 0 Continued M- Plus 27 mg iron- 1 mg tablet 1 tablet PO DAILY RF: 0 ondansetron HCl [Zofran] 4 mg tablet 4 mg PO Q8H PRN (Reason: Nausea) RF: 0 penicillin V potassium 500 mg tablet 500 mg PO Q6H RF: 0 Date of admission: 01/14/21 08:22 Primary Care Provider: Chip Meyer Jr. Admitting Provider: Jez Enamorado Attending physician on admission: Jez Enamorado Condition: Stable
[2021-01-15 07:45] VITALS: BP 112/64; PULSE 70; RESP 20; TEMP 37.2; O2SAT 100
[2021-01-15 07:54] LABS: Rapid Plasma Reagin Non-Reactive (NonReactive)
[2021-01-15] MEDS: DOCUSATE SODIUM 100 MG CAPSULE PO ×2 (09:15→17:40)
[2021-01-15] MEDS: POLYSACCHARIDE IRON COMPLEX 150 MG CAPSULE PO ×2 (09:15→17:40)
--- NOTE | 2021-01-15 16:09 | PCCCNOTE ---
Received call from Sarah Langley this morning ([phone]). She reported that this case was assigned to her, but not for investigation. It was assigned for voluntary services. She reviewed case and escalated to her supervisor lens generating, as she also thought an investigation should take place. I did inform her that both pediatricians wanted an investigation. Sarah's supervisor lens generating, Aletha Casarez ([phone]) called to request more info. She also called the hotline to make report. Received call back from Aletha this afternoon stating that hotline has taken report and case will be assigned to the [place] office. Will follow up tomorrow when vice investigator is assigned.
[2021-01-15] MEDS: ACETAMINOPHEN 325 MG TABLET 650 MG PO (19:35)
[2021-01-15 19:55] VITALS: BP 110/60; PULSE 71; RESP 16; TEMP 36.7; O2SAT 100
--- NOTE | 2021-01-15 19:59 | PC.NURSE ---
Patient to first floor nursery to feed infant.
[2021-01-16] MEDS: IBUPROFEN 600 MG TABLET PO (05:23)
[2021-01-16] MEDS: PENICILLIN V POTASSIUM 250 MG TABLET 500 MG PO ×2 (05:23→14:07)
[2021-01-16 07:40] VITALS: BP 108/60; PULSE 60; RESP 16; TEMP 37.6; O2SAT 100
[2021-01-16] MEDS: POLYSACCHARIDE IRON COMPLEX 150 MG CAPSULE PO (09:05)
[2021-01-16] MEDS: DOCUSATE SODIUM 100 MG CAPSULE PO (09:06)
--- NOTE | 2021-01-16 10:00 | PC.NURSE ---
Patient instructed to view the discharge video Mother & Baby Care, The First Two Weeks . Patient was given the opportunity and encouraged to ask questions. Patient verbalized understanding of information shared and has been given the mother/baby guide for home reference.
--- NOTE | 2021-01-16 13:45 | PC.NURSE ---
Lidia Hardin with [facility] here to see pt. Copies of her ID placed on mom and baby's charts.
[2021-01-16] MEDS: MEASLES,MUMPS,RUBELLA VACCINE 0.5 ML VIAL SUB-Q (14:07)
--- NOTE | 2021-01-16 14:30 | PC.NURSE ---
Pt discharged to [facility]. Pt will move downstairs to room 114.
--- NOTE | 2021-01-16 16:05 | PCCCNOTE ---
Lidia Hardin from [facility] came to see pt. and baby today. Decision not made yet on disposition for baby. Lidia will see home and will follow up on Tuesday. Baby not ready for discharge until sometime next week.
--- NOTE | 2021-01-26 07:22 | P.DS_ITS ---
DS: Admitting Diagnosis Admitting Diagnosis Admitting Diagnosis: OB - DS: Summary OB Procedures : None OB Procedures Intrapartum: Spontaneous Vag Delivery OB Procedures: : None Time Spent with Patient Time attestation: Total time spent providing and/or coordinating discharge services: DS: Data Data Completed and Pending Completed studies during hospitalization: Pending at discharge 01/14/21 08:29 Surgical [PTH] Routine Discharge Plan Discharge Discharging Clinician: Jez Enamorado Anticipated Discharge Date/Time: 01/16/21 13:00 Patient Disposition: Home, Self-Care Activity: as tolerated Diet: as tolerated Discharge Instructions: Education: Mom and Baby Guide and Preeclampsia Handout Given to: Mother Follow-Up: Call your delivering provider's office for an appointment to be seen in: 3 weeks Mom should come to the [facility] for the follow-up appointment. Appointment Date/Time: January 17, 2021 at 10:00 am What to expect at your follow-up visit: Physical Assessment Call [phone] if you are unable to keep your appointment time. BREAST CARE: * Wear a snug supportive bra. * For engorgement discomfort: Bottle Feeding: * May apply ice packs EPISIOTOMY/PERINEAL CARE: * Until bleeding stops, use your amadou bottle after urinating * Change your pad frequently throughout the day * You may take sitz baths several times a day (fill your bathtub with warm water and soak for 20 minutes.) Do NOT bathe in the water * No tub baths until seen by your physician - You may shower ACTIVITY: * Rest as much as possible. * Do not exercise or lift anything heavier than your baby (such as laundry or other children.) * Avoid stairs or driving as much as possible. * Do not put anything into the vagina. No douching, tampons, or sexual activity until seen by physician. NOTIFY PHYSICIAN IF YOU HAVE ANY QUESTIONS OR IF ANY OF THE FOLLOWING SYMPTOMS OCCUR: * If your episiotomy or incision becomes red, swollen, or more painful than what you have experienced in the hospital. * If your vaginal bleeding becomes foul smelling. * If your vaginal bleeding becomes more heavy than a period or if your bleeding changes from pink to bright red. However, you may pass an occasional walnut- sized clot once or twice for the first week . * If you experience a sharp, shooting pain in you calves. * If you discover a hard, reddened area on your breast or if you experience flu- like symptoms. DIET: * Eat regular, well-balanced meals. * Drink plenty of fluids daily. Stand Alone Forms: General Discharge Information Follow-up/Referrals: Jez Enamorado MD [Physician] - 3 Weeks Discharge Medications: New ibuprofen 600 mg Tablet 600 mg PO Q6H PRN (Reason: Cramping) Qty: 30 RF: 0 Continued M- Plus 27 mg iron- 1 mg tablet 1 tablet PO DAILY RF: 0 ondansetron HCl [Zofran] 4 mg tablet 4 mg PO Q8H PRN (Reason: Nausea) RF: 0 penicillin V potassium 500 mg tablet 500 mg PO Q6H RF: 0 Date of admission: 01/14/21 08:22 Primary Care Provider: Chip Meyer Jr. Admitting Provider: Humble Lemus Attending physician on admission: Jez Enamorado Condition: Stable
== END 2021-01-16 14:30 | disposition home or self-care (01) | DRG 560 ==
LOC: ANHLDR 08:30 → ANHOB2 14:23
PROVIDERS: Admitting Provider Obstetrics & Gynecology; PCP Internal Medicine; Visit Provider Obstetrics & Gynecology
DX: O70.0 First degree perineal laceration during delivery (principal)
CPT/HCPCS: 36415; 80307; 85014; 85018; 85025; 86592; 86703; 86850; 86900; 86901; 88307; 90710; A9270; G0432; J2590

== ENCOUNTER 2022-03-27 12:04 | Emergency (ER) | payer BC, SELFPAY ==
[2022-03-27 12:05] VITALS: BP 112/50; PULSE 88; RESP 18; TEMP 36.2; O2SAT 100
--- NOTE | 2022-03-27 12:21 | ED.GENADULT ---
HPI - General Adult General Chief complaint: Nausea/Vomiting/Diarrhea Stated complaint: vomiting x 1 week - 10 week Time Seen by Provider: 03/27/22 12:14 History of Present Illness HPI narrative: 26-year-old female that is , approximately 10 weeks presenting to the emergency department for evaluation of nausea and vomiting. Patient has had prior issues with hyperemesis gravidarum. Patient was just recently seen at [place] emergency department and was discharged home with Zofran. Patient states it is not as dissolvable tablet. Patient states that the Zofran is not helping to control her symptoms. Patient denies any recent fevers or illnesses. Patient denies any abdominal pain. Patient denies any vaginal bleeding or vaginal discharge. Patient does have follow-up with Dr. Nath. Patient has had an ultrasound with this . Related Data Home Medications Medication Instructions Recorded Confirmed ondansetron HCl 4 mg tablet 4 mg PO Q8H PRN Nausea 01/01/21 01/14/21 (Zofran) vitamin with calcium 1 tablet PO DAILY 01/01/21 01/14/21 no.72-iron 27 mg-folic acid 1 mg tablet (M-Meño Plus) Allergies Allergy/AdvReac Type Severity Reaction Status Date / Time No Known Allergies Allergy Verified 03/27/22 12:10 Review of Systems Review of Systems: CONSTITUTIONAL: Denies fever, chills, or sweats. EYES: Denies visual changes, redness, or discharge. ENT: Denies rhinorrhea, congestion, sore throat, or otalgia. CARDIOVASCULAR: Denies chest pain, palpitations, or edema. RESPIRATORY: Denies cough or dyspnea. GASTROINTESTINAL: See HPI GENITOURINARY: Denies dysuria or hematuria. SKIN: Denies rash or itching. MUSCULOSKELETAL: Denies back pain, joint pain, or myalgia. NEUROLOGIC: Denies headache, numbness, or weakness. [facility] Past Medical History Medical History Healthy female adult Nausea and vomiting during Surgical History Surgical History Previous section Family History Family History (Updated 01/14/21 @ 11:10 by Leah Croft RN) Father , From Fentanyl overdose Overdose of opiate or related narcotic Social History Social History (Updated 01/14/21 @ 09:29 by Humble Lemus DO) Smoking packs per day: 1.5 Smoking cigarettes per day: 30.0 Years smoked: 12 Smoking pack-years: 18.00 Smoking status: Current every day smoker Tobacco type: cigarettes Second hand tobacco smoke exposure: Yes Additional smoking assessment comments: Has cut down to 1/2 PPD during Substance use: current Other substance usage details: Marijuana Last use: 1 day ago Spiritual care concerns: No Exam Narrative: APPEARANCE: Well appearing, no pain, no distress, well-nourished. HEAD: normocephalic, atraumatic. EYES: PERRLA/EOMI, conjunctivae clear. NOSE: Normal no drainage NECK: Supple. No adenopathy, no masses. RESPIRATORY: Airway patent, respirations nonlabored. Clear to auscultation bilaterally, no rales, rhonchi, wheezing. CARDIOVASCULAR: Regular rate and rhythm without murmurs rubs or gallops. ABDOMINAL: Soft, nontender, nondistended, normal bowel sounds MUSCULOSKELETAL: Moves all extremities. Strength/ROM intact, No edema, No calf tenderness. NEURO: Alert. Cranial nerves II through XII intact. Grossly intact SKIN: Warm, dry. Normal Color Course Course Emergency Course: Patient is tolerating p.o. and does feel improved with treatment. Patient was provided p.o. potassium to replace her potassium. Patient does admit to THC use daily. Patient was educated on the possibility that this is cannabinoid hyperemesis syndrome. Patient was encouraged to have a 2-week THC washout. Patient will also be provided prescription for Zofran ODT's. All questions and concerns were addressed. Patient was comfortable with the plan for discharge and
[2022-03-27 12:37] LABS: Basophils Percent Auto 0.1 % (0.2-1.2); Eosinophils Percent Auto 0.1 % (0-4.4); Hematocrit 42.6 % (37.0-47.0); Hemoglobin 15.1 g/dL (12.0-15.0); Immature Granulocyte Absolute 0.05 K/mm3 (0.00-0.031); Immature Granulocyte Percent A 0.3 % (0-0.5); Lymphocytes Absolute Auto 2.37 K/mm3 (0.9-3.2); Lymphocytes Percent Auto 16.6 % (18.3-44.2); Mean Corpuscular HGB Conc 35.4 g/dl (32-36); Mean Corpuscular Hemoglobin 32.5 pg (26-34); Mean Corpuscular Volume 91.6 fl (80-100); Mean Platelet Volume 9.7 fl (7.4-10.4); Monocytes Percent Auto 7.2 % (2.6-8.5); Neutrophils Absolute Auto 10.8 K/mm3 (1.3-6.7); Neutrophils Percent Auto 75.7 % (45.5-73.1); Platelet Count Result 298 k/mm3 (150-375); Red Blood Count 4.65 M/mm3 (4.2-5.4); Red Cell Distribution Width 12.1 % (11.5-14.5); White Blood Count 14.3 K/mm3 (4.5-10.0)
[2022-03-27 12:38] LABS: Add Urine Microscopic? YES; Appearance Urine Slightly Cloudy (Clear); Bilirubin Urine 1+ (Negative); Blood Urine Trace-Intact (Negative); Color Urine Yellow (Yellow); Glucose Urine UA Negative (Negative); Ketones Urine 4+ mg/dL (Negative); Leukocyte Esterase Ur Negative LEU/UL (Negative); Nitrate Urine Negative (Negative); Protein Urine Trace mg/dL (Negative); Specific Grav Ur 1.025 (1.001-1.035)
[2022-03-27 12:43] LABS: Alanine Aminotransferase 32 U/L (6-35); Albumin Level 4.5 g/dL (3.5-5.1); Alkaline Phosphatase 55 U/L (38-126); Anion Gap 12 mmol/L (8-16); Aspartate Amino Transferase 30 U/L (14-36); Bilirubin,Total 0.9 mg/dL (0.2-1.3); Blood Urea Nitrogen 7 mg/dL (7-17); Calcium 8.8 mg/dL (8.4-10.2); Carbon Dioxide 22 mmol/L (22-30); Chloride 97 mmol/L (98-107); Estimated CRCL calculation 98 ml/min; Estimated Glomerular Filt Rate > 60; Glucose 91 mg/dL (65-110); Lipase 95 U/L (23-300); Sodium 131 mmol/L (137-145)
[2022-03-27 12:45] LABS: Amorphous Sediment Urine Few; Bacteria Urine Trace /hpf; Mucus Urine Rare /lpf; Squamous Epithelial Cell Urine Many /hpf (Few)
[2022-03-27] MEDS: SODIUM CHLORIDE 0.9% IV 1,000 ML 999 ML IV CONT (12:46)
[2022-03-27] MEDS: ONDANSETRON INJ 4 MG/2 ML VIAL IV PUSH (12:47)
[2022-03-27] MEDS: POTASSIUM CHLORIDE 20 MEQ PACKET (FOR LIQUID) 40 MEQ PO (13:07)
== END 2022-03-27 14:23 | disposition home or self-care (01) ==
PROVIDERS: Emergency Provider Emergency Medicine; PCP Obstetrics & Gynecology
DX: O21.0 Mild hyperemesis gravidarum (principal); Z3A.10 10 weeks gestation of pregnancy
CPT/HCPCS: 36415; 80053; 81001; 83690; 85025; 96374; 99284; A9270; J2405; J7030

== ENCOUNTER 2022-04-23 13:19 | Emergency (ER) | payer BC, SELFPAY ==
--- NOTE | ~2022-04-23 | US_ITS ---
EXAMINATION: US OB follow up, US OB transvaginal DATE: 04/23/2022 14:33 (accession [id number]), 04/23/2022 15:58 (accession [id number]) INDICATION: Vaginal bleeding during second trimester TECHNIQUE: Real-time ultrasound of the pelvis was performed. The interpreting radiologist was not pre sent for the study. COMPARISON: None. FINDINGS: There is a single living fetus in variable presentation. The placenta is posterior and 1.6 cm from the internal cervical os. cardiac activity and movement are noted. heart ra te is 140 beats per minute (bpm). The amniotic fluid index is subjectively normal. The following biometric data were obtained: Biparietal diameter (BPD): 4.1 cm; head circumference (HC): 14.5 cm; abdominal circumference (AC): 13 .3 cm; femur length (FL): 2.3 cm. These measurements are concordant. Estimated weight is 213 g +/- 32 g, which correlates with the 73rd percentile when 09/28/2022 i s used as estimated date of delivery. As single measurements, these parameters are each equal to the following estimated gestational ages w ith ranges of +/- 2 standard deviations: BPD: 18 weeks 3 days +/- 1 weeks 5 days. HC: 17 weeks 5 days +/- 1 weeks 1 days. AC: 18 weeks 6 days +/- 2 weeks 0 days. FL: 16 weeks 6 days +/- 1 weeks 3 days. estimated gestational age based solely on measurements from this exam is 18 weeks 0 days +/- 1 weeks 2 days. IMPRESSION: 1. Single living fetus in variable presentation. 2. Low-lying placenta. 3. Estimated weight is 213 g +/- 32 g, which correlates with the 73rd percentile when 2 is used as estimated date of delivery. Reviewed, dictated and finalized at location F. IMPRESSION: 1. Single living fetus in variable presentation. 2. Low-lying placenta. 3. Estimated weight is 213 g +/- 32 g, which correlates with the 73rd per centile when 09/28/2022 is used as estimated date of delivery.
[2022-04-23 13:25] VITALS: BP 119/84; PULSE 72; RESP 16; TEMP 36.7; O2SAT 100
[2022-04-23 13:44] LABS: Basophils Percent Auto 0.2 % (0.2-1.2); Hematocrit 42.6 % (37.0-47.0); Hemoglobin 14.7 g/dL (12.0-15.0); Immature Granulocyte Percent A 0.6 % (0-0.5); Lymphocytes Absolute Auto 0.96 K/mm3 (0.9-3.2); Lymphocytes Percent Auto 5.4 % (18.3-44.2); Mean Corpuscular HGB Conc 34.5 g/dl (32-36); Mean Corpuscular Hemoglobin 32.5 pg (26-34); Monocytes Absolute Auto 0.3 K/mm3 (0.1-0.6); Monocytes Percent Auto 1.6 % (2.6-8.5); Neutrophils Absolute Auto 16.4 K/mm3 (1.3-6.7); Neutrophils Percent Auto 92.2 % (45.5-73.1); Platelet Count Result 311 k/mm3 (150-375); Red Blood Count 4.53 M/mm3 (4.2-5.4); Red Cell Distribution Width 13.1 % (11.5-14.5); White Blood Count 17.8 K/mm3 (4.5-10.0)
[2022-04-23] MEDS: SODIUM CHLORIDE 0.9% IV 1,000 ML 999 ML IV CONT (13:50)
--- NOTE | 2022-04-23 14:04 | PC.NURSE ---
Pt to U/S via w/c at this time.
--- NOTE | 2022-04-23 14:35 | ED.GENADULT ---
HPI - General Adult General Chief complaint: Vaginal Bleeding <Raymond Ortiz MD - Last Filed: 04/23/22 14:40> Stated complaint: vaginal bleeding <Raymond Ortiz MD - Last Filed: 04/23/22 14:40> Time Seen by Provider: 04/23/22 13:23 <Raymond Ortiz MD - Last Filed: 04/23/22 14:40> History of Present Illness HPI narrative: Patient is a 26-year-old G6, P4 SAB 1 who presents ER with vaginal bleeding. Noticed spotting last night and then started having persistent bleeding earlier today. She reports she soaked through 3 pads. She reports she feels weak and lightheaded. She has lower abdominal discomfort. No urinary frequency urgency or dysuria. She endorses that the bleeding is without clot. Her OB is Dr. Enamorado. Unknown blood type. She is approximately 14 weeks . <Raymond Ortiz MD - Last Filed: 04/23/22 14:40> Related Data Home medications: Home Medications Medication Instructions Recorded Confirmed ondansetron HCl 4 mg tablet 4 mg PO Q8H PRN Nausea 01/01/21 01/14/21 (Zofran) vitamin with calcium 1 tablet PO DAILY 01/01/21 01/14/21 no.72-iron 27 mg-folic acid 1 mg tablet (M-Meño Plus) <Raymond Ortiz MD - Last Filed: 04/23/22 14:40> Allergies/adverse reactions: Allergies Allergy/AdvReac Type Severity Reaction Status Date / Time No Known Allergies Allergy Verified 04/23/22 13:34 <Raymond Ortiz MD - Last Filed: 04/23/22 14:40> Review of Systems Review of Systems: All systems reviewed & are unremarkable except as noted in HPI and below <Raymond Ortiz MD - Last Filed: 04/23/22 14:40> Constitutional: Constitutional: Denies chills, Reports fatigue, Denies fever(s) and Reports weakness <Raymond Ortiz MD - Last Filed: 04/23/22 14:40> ENT: Denies nasal congestion and Denies sore throat <Raymond Ortiz MD - Last Filed: 04/23/22 14:40> Cardiovascular: Cardiovascular: Denies chest pain, Denies rapid heart rate and Denies slow heart rate <Raymond Ortiz MD - Last Filed: 04/23/22 14:40> Respiratory: Respiratory: Denies cough and Denies dyspnea <Raymond Ortiz MD - Last Filed: 04/23/22 14:40> Gastrointestinal: Gastrointestinal: Reports abdominal pain, Denies nausea and Denies vomiting <Raymond Ortiz MD - Last Filed: 04/23/22 14:40> Genitourinary: Genitourinary: Reports abnormal vaginal bleeding, Denies nocturia, Denies dysuria and Denies vaginal discharge <Raymond Ortiz MD - Last Filed: 04/23/22 14:40> Neurologic: Reports dizziness, Denies focal weakness and Denies numbness <Raymond Ortiz MD - Last Filed: 04/23/22 14:40> PMFSH Past Medical History Medical History: Medical History Healthy female adult Nausea and vomiting during <Raymond Ortiz MD - Last Filed: 04/23/22 14:40> Surgical History Surgical History: Surgical History Previous section <Raymond Ortiz MD - Last Filed: 04/23/22 14:40> Family History Family History: Family History (Updated 01/14/21 @ 11:10 by Leah Croft RN) Father , From Fentanyl overdose Overdose of opiate or related narcotic <Raymond Ortiz MD - Last Filed: 04/23/22 14:40> Social History Social History: Social History (Updated 01/14/21 @ 09:29 by Humble Lemus DO) Smoking packs per day: 1.5 Smoking cigarettes per day: 30.0 Years smoked: 12 Smoking pack-years: 18.00 Smoking status: Current every day smoker Tobacco type: cigarettes Second hand tobacco smoke exposure: Yes Additional smoking assessment comments: Has cut down to 1/2 PPD during Substance use: current Other substance usage details: Marijuana Last use: 1 day ago Spiritual care concerns: No <Raymond Ortiz MD - Last Filed: 04/23/22 14:40> Exam Narrative: GENERAL: Well-dimitri
--- NOTE | 2022-04-23 15:06 | PC.NURSE ---
Pt given water due to U/S calling and requesting a full bladder for imaging. Pt also has NS infusing.
[2022-04-23 15:07] VITALS: BP 116/76; PULSE 78; RESP 14; O2SAT 100
[2022-04-23 16:11] LABS: Anion Gap 12 mmol/L (8-16); Blood Urea Nitrogen 9 mg/dL (7-17); Calcium 9.2 mg/dL (8.4-10.2); Carbon Dioxide 21 mmol/L (22-30); Chloride 102 mmol/L (98-107); Estimated CRCL calculation 111 ml/min; Estimated Glomerular Filt Rate > 60; Glucose 131 mg/dL (65-110); Potassium 3.5 mmol/L (3.4-5.0); Sodium 135 mmol/L (137-145)
== END 2022-04-23 17:17 | disposition home or self-care (01) ==
PROVIDERS: Emergency Medicine; Emergency Provider Family Medicine; PCP Obstetrics & Gynecology
DX: O20.0 Threatened abortion (principal); O99.332 Smoking (tobacco) complicating pregnancy, second trimester; F17.210 Nicotine dependence, cigarettes, uncomplicated; Z3A.18 18 weeks gestation of pregnancy
CPT/HCPCS: 36415; 76816; 76817; 80048; 84702; 85025; 85461; 96360; 99284; J7030

== ENCOUNTER 2022-08-29 17:09 | Inpatient (IN) | payer OTHER, SELFPAY ==
[2022-08-29] VITALS (63 sets, daily range): BP systolic 86–133; BP diastolic 52–104; PULSE 59–107; RESP 13–20; TEMP 35.8–36.4; O2SAT 97–100; BMI 23.0
--- NOTE | 2022-08-29 18:01 | WPDANESEPP ---
Anes - Eval Pre Procedure Procedure: Repeat c section Date/Time: 08/29/22 18:01 Surgeon: Fei Preop Diagnosis: Previous c section, AROM Pre Op Diagnosis: leaking/contractions Patient Data Age: 27 Gender: F Height: Weight: Last Vital Signs Pulse 106 H 08/29/22 17:46 BP 124/70 08/29/22 17:46 Allergies Allergy/AdvReac Type Severity Reaction Status Date / Time No Known Allergies Allergy Verified 04/23/22 13:34 Home Medications Medication Instructions Recorded Confirmed Type ondansetron HCl 4 mg tablet 4 mg PO Q8H PRN Nausea 01/01/21 01/14/21 History (Zofran) vitamin with calcium 1 tablet PO DAILY 01/01/21 01/14/21 History no.72-iron 27 mg-folic acid 1 mg tablet (M- Plus) ondansetron 4 mg disintegrating 4 mg PO Q8H PRN nausea and 03/27/22 Rx tablet vomiting #14 tabs Patient hx anesthesia problems: none Family hx anesthesia problems: none Results Review: All pre-operative results and documents have been reviewed as part of the pre-operative evaluation. [facility] Past Medical History Medical History (Updated 08/29/22 @ 18:04 by Loy Miranda CRNA) Drug abuse Nausea and vomiting during No care in current Placenta previa delivery after section Surgical History Surgical History Previous section Family History Family History Father , From Fentanyl overdose Overdose of opiate or related narcotic Social History Social History (Updated 01/14/21 @ 09:29 by Humble Lemus DO) Smoking packs per day: 1.5 Smoking cigarettes per day: 30.0 Years smoked: 12 Smoking pack-years: 18.00 Smoking status: Current every day smoker Tobacco type: cigarettes Second hand tobacco smoke exposure: Yes Additional smoking assessment comments: Has cut down to 1/2 PPD during Substance use: current Other substance usage details: Marijuana Last use: 1 day ago Spiritual care concerns: No Exam Day of Procedure 08/29/22 18:01 Patient weight: normal Airway: Mallampati scale class II and other (poor dentition, multiple missing and loose teeth)
[2022-08-29] MEDS: LACTATED RINGERS 1,000 ML 999 ML IV CONT (18:17)
[2022-08-29 18:22] LABS: Basophils Percent Auto 0.1 % (0.2-1.2); Hematocrit 38.2 % (37.0-47.0); Hemoglobin 12.8 g/dL (12.0-15.0); Immature Granulocyte Absolute 0.05 K/mm3 (0.00-0.031); Immature Granulocyte Percent A 0.4 % (0-0.5); Lymphocytes Absolute Auto 1.55 K/mm3 (0.9-3.2); Lymphocytes Percent Auto 10.9 % (18.3-44.2); Mean Corpuscular HGB Conc 33.5 g/dl (32-36); Mean Corpuscular Volume 89.7 fl (80-100); Mean Platelet Volume 11.7 fl (7.4-10.4); Monocytes Absolute Auto 0.7 K/mm3 (0.1-0.6); Monocytes Percent Auto 4.9 % (2.6-8.5); Neutrophils Absolute Auto 11.9 K/mm3 (1.3-6.7); Neutrophils Percent Auto 83.7 % (45.5-73.1); Platelet Count Result 212 k/mm3 (150-375); Red Blood Count 4.26 M/mm3 (4.2-5.4); Red Cell Distribution Width 15.1 % (11.5-14.5); White Blood Count 14.2 K/mm3 (4.5-10.0)
--- NOTE | 2022-08-29 18:25 | LDADM ---
This patient, Fabi Padilla, was admitted to Labor/Delivery/Recovery 107 on 08/29/22 at 17:09. Plans for labor, pain management and were discussed with patient. Patient/family oriented to hospital policies and general routines including ID bracelet, bed and alarms, visiting hours, pain management, procedures, bathroom and other care routines, personal items, smoking policy, room service/diet and guest tray routines, security routines, and visiting hours. Patient/Family are encouraged to report perceived risks to care and to ask questions if they do not understand what they are told or what they should do. See OBIX for further documentation.
--- NOTE | 2022-08-29 18:25 | WPDHPUPDATE1 ---
History and Physical Update Update Date/Time: 08/29/22 18:25 History and Physical has been reviewed, including an updated exam of the patient. There are NO changes in the patient's condition. Risks, benefits, and alternatives have been discussed and questions answered. Patient agrees to proceed with procedure.
--- NOTE | 2022-08-29 18:26 | PM.IMHP ---
H&P: HPI History of Present Illness Date/Time: 08/29/22 18:26 27 year female 5 para 303 presents with ruptured membranes and irregular contractions. Is 36 weeks by a 20 week ultrasound which performed due to irregular bleeding At which point low-lying placenta was diagnosed. She has had no further bleeding no further ultrasounds no further care. Prior delivery x2 followed with precipitous delivery. Chief Complaint: PMFSH Past Medical History Medical History Drug abuse Nausea and vomiting during No care in current Placenta previa delivery after section Surgical History Surgical History Previous section Family History Family History Father , From Fentanyl overdose Overdose of opiate or related narcotic Social History Social History Smoking packs per day: 1.5 Smoking cigarettes per day: 30.0 Years smoked: 12 Smoking pack-years: 18.00 Smoking status: Current every day smoker Tobacco type: cigarettes Second hand tobacco smoke exposure: Yes Additional smoking assessment comments: Has cut down to 1/2 PPD during Substance use: current Other substance usage details: Marijuana Last use: 1 day ago Spiritual care concerns: No Meds Home Medications and Allergies Home Medications Medication Instructions Recorded Confirmed Type ondansetron HCl 4 mg tablet 4 mg PO Q8H PRN Nausea 01/01/21 01/14/21 History (Pinky) vitamin with calcium 1 tablet PO DAILY 01/01/21 01/14/21 History no.72-iron 27 mg-folic acid 1 mg tablet (M- Plus) ondansetron 4 mg disintegrating 4 mg PO Q8H PRN nausea and 03/27/22 Rx tablet vomiting #14 tabs Allergies Allergy/AdvReac Type Severity Reaction Status Date / Time No Known Allergies Allergy Verified 04/23/22 13:34 Vital Signs Vital Signs - 24 hr 08/29/22 17:20 08/29/22 17:31 08/29/22 17:46 Pulse Rate 107 H 104 H 106 H Blood Pressure 128/80 129/82 124/70 08/29/22 18:17 Pulse Rate 94 Blood Pressure 133/85 Exam Const: General: cooperative, healthy appearing and comfortable Resp: Effort & Inspection: normal respiratory effort Auscultation: clear to auscultation bilaterally Cardio: Rate: regular rate Rhythm: regular rhythm GI: Inspection: normal to inspection Auscultation: normal bowel sounds : External Female Exam: normal external appearance Bimanual exam- vagina & uterus: enlarged ( fundal height 36cm heart tones 140) H&P: Results Labs Labs: Short CBC 08/29/22 Range/Units 18:14 WBC 14.2 H (4.5-10.0) K/mm3 Hgb 12.8 (12.0-15.0) g/dL Hct 38.2 (37.0-47.0) % Plt Count 212 (150-375) k/mm3 Assessment and Plan Assessment and plan (1) 36 weeks gestation of : Code(s): Z3A.36 - 36 weeks gestation of Status: Acute (2) No care in current : Code(s): O09.30 - Supervision of with insufficient care, unspecified trimester Status: Acute (3) Previous section: Code(s): Z98.891 - History of uterine scar from previous surgery Status: Acute Plan proceed with repeat delivery.
[2022-08-29 19:01] LABS: Rubella IgG Antibody 15.2 IU/ML
[2022-08-29 19:04] LABS: Hepatitis B Surface Antigen Negative (Negative)
[2022-08-29 19:13] LABS: HIV 1/2 Ab P24 Ag Result Negative (Negative)
--- NOTE | 2022-08-29 19:26 | P.PCNOB_ITS ---
OB - Delivery Note Procedure Events: No Care and Previous Delivery Induction method: None Delivery monitor: External FHT and External Uterine Route of delivery: Specimen: Yes Quantitative Blood Loss (ml): 580 Anesthesia type: Spinal Disposition: Floor Complications: None Narrative: patient was prepped and draped manner this procedure. Pfannenstiel incision was made which was carried down fascia. Adhesions were noted of the fascia to the uterus but these were incised and the fascia was dissected bilaterally the length skin edges. Once adhesions had been taken down the muscles were dissected away from fascial layer. Bladder flap was developed uterus was scored with clear fluid noted vertex was delivered without difficulty rest of baby followed cord was clamped and placenta was removed manually. Uterus was exteriorized clears of membranes and clots and approximated using 0 Monocryl running interlocking manner good approximation and hemostasis noted. Fundal area of adhesions was rendered hemostatic with a running interlocking 0 Monocryl suture. Tiff was placed empirically throughout the bladder flap due to dense adhesions in that area and there was no significant oozing or bleeding noted while monitoring this for approximately 2-3 minutes. Fascia was then reapproximated using 0 Vicryl from left angle to the midline right angle to midline subcutaneous tissue was approximated using 0 plain suture and estephanie were used to approximate the skin edges. Patient was sent to recovery room in stable condition. [place] Baby Weeks of gestation at delivery: 36 gender: Male Weight (pounds): 5 Weight (ounces): 7 presentation: vertex Placenta delivery description: Manual Removal score one minute: 9 score five minutes: 9 AMG Delivery Billing Delivery Delivery: Delivery Charge
[2022-08-29] MEDS: MORPHINE SULFATE INJ (*CRX) 10 MG/ML AMP 2 MG IV PUSH ×3 (20:52→22:24)
[2022-08-29 20:56] LABS: Amphetamine Screen Urine Positive (Negative); Barbiturate Screen Urine Negative (Negative); Benzodiazepines Screen Urine Negative (Negative); Cannabinoid Screen Urine Positive (Negative); Cocaine Screen Urine Negative (Negative); Methadone Screen Urine Negative (Negative); Opiate Screen Urine Negative (Negative); Phencyclidine Screen Urine Negative (Negative)
--- NOTE | 2022-08-29 22:27 | PC.NURSE ---
Patient transferred to post room #290 per stretcher from labor and delivery. Oriented to unit, room, information board, rooming in, admission packet and security measures. Patient verbalizes understanding.
[2022-08-29] MEDS: DEXTROSE 5%/0.45% SOD CHL 1,000 ML 125 ML IV CONT (22:59)
[2022-08-30] MEDS: HYDROcodone/acetaminophen (*CRX) 10-325 MG TABLET 1 TAB PO ×5 (02:56→21:01)
[2022-08-30] MEDS: IBUPROFEN 600 MG TABLET PO ×3 (02:56→21:04)
[2022-08-30 03:00] VITALS: BP 113/73; PULSE 70; RESP 18; TEMP 36.2
[2022-08-30 05:10] LABS: Basophils Percent Auto 0.2 % (0.2-1.2); Eosinophils Percent Auto 0.1 % (0-4.4); Hematocrit 30.6 % (37.0-47.0); Hemoglobin 10.2 g/dL (12.0-15.0); Immature Granulocyte Absolute 0.03 K/mm3 (0.00-0.031); Immature Granulocyte Percent A 0.3 % (0-0.5); Lymphocytes Absolute Auto 1.97 K/mm3 (0.9-3.2); Lymphocytes Percent Auto 17.4 % (18.3-44.2); Mean Corpuscular HGB Conc 33.3 g/dl (32-36); Mean Corpuscular Hemoglobin 30.3 pg (26-34); Mean Corpuscular Volume 90.8 fl (80-100); Mean Platelet Volume 11.6 fl (7.4-10.4); Monocytes Percent Auto 8.4 % (2.6-8.5); Neutrophils Absolute Auto 8.3 K/mm3 (1.3-6.7); Neutrophils Percent Auto 73.6 % (45.5-73.1); Platelet Count Result 180 k/mm3 (150-375); Red Blood Count 3.37 M/mm3 (4.2-5.4); White Blood Count 11.3 K/mm3 (4.5-10.0)
[2022-08-30 07:19] VITALS: BP 104/56; PULSE 69; RESP 15; TEMP 36.4; O2SAT 100
[2022-08-30 08:30] LABS: Rapid Plasma Reagin Non-Reactive (NonReactive)
[2022-08-30 11:45] VITALS: BP 108/53; PULSE 66; RESP 16; TEMP 36.6; O2SAT 100
--- NOTE | 2022-08-30 12:37 | PCCCNOTE ---
Addendum entered by Kourtney Matamoros, TERRY 09/13/22 08:54: Urine and Umbilical cord drug screen results faxed to [facility] Office at [phone]. Addendum entered by Kourtney Matamoros, DRESSING ROOM ATTENDANT 08/31/22 08:42: Recvd voicemail from [facility] worker, Hector Beltran [phone], who requested a call back. CC called this phone number and left a voicemail on 08/30/22. CC also called [facility] office [phone], and left a voicemail requesting a call back on 08/30/22. CC called Hector at [phone] again this morning at 8:40 AM; awaiting call back. Original Note: Recvd notice that pt. tested + for Amphetamines and Marijuana. Pt's baby UDS was also + for Amphetamines and Marijuana. Pt's umbilical cord screen is pending. Pt. denies using Amphetamines. Pt. denies any home medications. Pt. reports did use Marijuana during . Baby was transferred to [facility] in [facility]. Spoke with GLASS MOULD CLEANER Yuval at [phone]; Yuval aware of drug screen findings. Yuval reports the meconium drug screen to be completed on baby at their facility. Also spoke with Canal Boat Captain at [place], Carmelina, ; she is also aware of drug screen findings. This is pt's 4th baby. Pt. reports her 14 year old is in custody of their father's. Pt. reports she has custody of her 5 and 1 year olds. Pt. reports her most recent [facility] case was closed in 2017. Pt. reports will be staying at [address] [place] [address] in [place], at discharge. Pt. anticipates discharge either 08/31 or 09/01. Report made with LILLY ANNA, , Katie Wilson reports casino investigator to follow up with CC and [facility] Canal Boat Captain. DORIAN cedillo.
--- NOTE | 2022-08-30 13:39 | PM.OBPNVD ---
OB - PN: Subj Subjective Date/time seen: 08/30/22 13:30 Narrative: POD#1 Fabi reports doing well today. Her bleeding is light. Her pain is controlled. She is tolerating regular diet. Her sanchez is still in place, she has not passed gas, nor ambulated. She denies any issues with her incision. She is planning to bottle feed; her son was transferred to [facility]. OB - PN: Obj Data Labs CBC & Chem 7: 08/30/22 04:52 Labs: Laboratory Results - last 24 hr 08/29/22 08/29/22 08/29/22 18:14 18:14 18:14 WBC 14.2 H RBC 4.26 Hgb 12.8 Hct 38.2 MCV 89.7 MCH 30.0 MCHC 33.5 RDW 15.1 H Plt Count 212 MPV 11.7 H Immature Gran % (Auto) 0.4 Neut % (Auto) 83.7 H Lymph % (Auto) 10.9 L [place] % (Auto) 4.9 Eos % (Auto) 0.0 Baso % (Auto) 0.1 L Lymph # (Auto) 1.55 Marathon # (Auto) 0.7 H Eos # (Auto) 0.0 Baso # (Auto) 0.0 Abs Immat Gran (auto) 0.05 H Absolute Neuts (auto) 11.9 H Absolute Nucleated RBC 0.0 Nucleated RBC % 0.0 Urine Opiates Screen Urine Methadone Screen Ur Barbiturates Screen Ur Phencyclidine Scrn Ur Amphetamine Screen U Benzodiazepines Scrn Urine Cocaine Screen U Cannabinoids Screen RPR Non-reactive Hep Bs Antigen HIV 1&2 Ab/P24 Ag 4thGn Rubella IgG Antibody Blood Type AB Positive Antibody Screen Negative 08/29/22 08/29/22 08/29/22 18:14 18:15 18:15 WBC RBC Hgb Hct MCV MCH MCHC RDW Plt Count MPV Immature Gran % (Auto) Neut % (Auto) Lymph % (Auto) Marathon % (Auto) Eos % (Auto) Baso % (Auto) Lymph # (Auto) Marathon # (Auto) Eos # (Auto) Baso # (Auto) Abs Immat Gran (auto) Absolute Neuts (auto) Absolute Nucleated RBC Nucleated RBC % Urine Opiates Screen Negative Urine Methadone Screen Negative Ur Barbiturates Screen Negative Ur Phencyclidine Scrn Negative Ur Amphetamine Screen Positive A U Benzodiazepines Scrn Negative Urine Cocaine Screen Negative U Cannabinoids Screen Positive A RPR Hep Bs Antigen HIV 1&2 Ab/P24 Ag 4thGn Negative Rubella IgG Antibody 15.2 Blood Type Antibody Screen 08/29/22 08/30/22 18:15 04:52 WBC 11.3 H RBC 3.37 L Hgb 10.2 L Hct 30.6 L MCV 90.8 MCH 30.3 MCHC 33.3 RDW 15.0 H Plt Count 180 MPV 11.6 H Immature Gran % (Auto) 0.3 Neut % (Auto) 73.6 H Lymph % (Auto) 17.4 L Marathon % (Auto) 8.4 Eos % (Auto) 0.1 Baso % (Auto) 0.2 Lymph # (Auto) 1.97 Marathon # (Auto) 1.0 H Eos # (Auto) 0.0 Baso # (Auto) 0.0 Abs Immat Gran (auto) 0.03 Absolute Neuts (auto) 8.3 H Absolute Nucleated RBC 0.0 Nucleated RBC % 0.0 Urine Opiates Screen Urine Methadone Screen Ur Barbiturates Screen Ur Phencyclidine Scrn Ur Amphetamine Screen U Benzodiazepines Scrn Urine Cocaine Screen U Cannabinoids Screen RPR Hep Bs Antigen Negative HIV 1&2 Ab/P24 Ag 4thGn Rubella IgG Antibody Blood Type Antibody Screen OB - PN A/P Assessment and Plan (1) S/P repeat low transverse : Code(s): Z98.891 - History of uterine scar from previous surgery Status: Acute (2) 36 weeks gestation of : Code(s): Z3A.36 - 36 weeks gestation of Status: Acute (3) No care in current : Code(s): O09.30 - Supervision of with insufficient care, unspecified trimester Status: Acute Plan day: 1 Plan: routine care Comments: - Remove sanchez; awaiting spontaneous void and flatus - Continue pain meds - Ambulation encouraged Time Spent With Patient Time: Total time spent is greater than 50% in coordination of care (as documented) at patient's floor/unit and/or counseling patient: Review of Systems Constitutional: Constitutional: Denies chills, Denies fever(s) and Denies head
--- NOTE | 2022-08-30 14:05 | WPDANLDPN2 ---
Anes-Prog Note L&D Date/Time: 08/30/22 14:05 Comfortable throughout: labor and delivery Neuraxial method: spinal Epidural/Spinal procedure site: clean & non-tender Neuro status: Neuro function grossly intact. Cardiovascular status: normal Respiratory status: normal Airway patency: baseline Mental status: baseline Post-Op hydration status: normal Vital Signs: Last Vital Signs Temp 36.6 C 08/30/22 11:45 Pulse 66 08/30/22 11:45 Resp 16 08/30/22 11:45 BP 108/53 L 08/30/22 11:45 Pulse Ox 100 08/30/22 11:45 O2 Del Method Room Air 08/30/22 07:19 Pain score (VAS): 6-7; receiving PO pain meds from nursing staff, states that helps with the pain. I/O: Intake & Output 08/29/22 08/30/22 08/30/22 23:59 07:59 15:59 Intake Total 100 240 Output Total 905 400 Balance -805 -160 Post-procedural complaints: none Patient feedback: Patient satisfied with anesthetic care.
--- NOTE | 2022-08-30 14:06 | WPDANLDNPN2 ---
Anes-Prog Note L&D-Neuraxial Date/Time: 08/30/22 14:06 Neuraxial medications: intrathecal PF morphine Opiod-related complaints: none Patient feedback: Patient satisfied with post-operative pain management.
[2022-08-30 15:30] VITALS: BP 129/68; PULSE 74; RESP 16; TEMP 36.6; O2SAT 100
--- NOTE | 2022-08-30 19:22 | PC.NURSE ---
1400 Hector Beltran with [facility] here to visit pt. ID badge copied and put on chart.
[2022-08-30 21:00] VITALS: BP 114/65; PULSE 74; RESP 18; TEMP 37
[2022-08-31] MEDS: HYDROcodone/acetaminophen (*CRX) 10-325 MG TABLET 1 TAB PO ×6 (00:21→22:14)
[2022-08-31] MEDS: IBUPROFEN 600 MG TABLET PO ×3 (06:48→22:14)
[2022-08-31] MEDS: DOCUSATE SODIUM 100 MG CAPSULE PO (06:49)
[2022-08-31 08:25] VITALS: BP 110/58; PULSE 69; RESP 18; TEMP 36.4; O2SAT 100
--- NOTE | 2022-08-31 09:50 | P.DS_ITS ---
DS: Admitting Diagnosis Discharge Date 09/01/2022 Admitting Diagnosis OB - DS: Summary OB Procedures : None OB Procedures Intrapartum: OB Procedures: : None Peripartum Data Procedures: Procedures Operation Date: 08/29/22 18:30 Actual Procedure Side Surgeon p Section Bilateral Jez Enamorado MD Time Spent with Patient Time attestation: Total time spent providing and/or coordinating discharge services: DS: Data Data Completed and Pending Pending studies at discharge: Pending at discharge 08/29/22 22:11 Surgical [PTH] Routine Discharge Plan Discharge Discharging Clinician: Jez Enamorado Patient Disposition: Home, Self-Care Activity: as tolerated Diet: as tolerated Discharge Instructions: 1. Do not remove dressing 2. return Tuesday the office for dressing removal and staple. Patient Instructions: Antibiotic Form Stand Alone Forms: General Discharge Information Follow-up/Referrals: Jez Enamorado MD [Physician] - 3 Weeks Discharge Medications: New hydrocodone-acetaminophen 5-325 mg Tablet 1 tablet PO Q4-6H Qty: 20 0RF ibuprofen 600 mg Tablet 600 mg PO Q6H PRN (Reason: Cramping) Qty: 20 0RF Continued M- Plus 27 mg iron- 1 mg tablet 1 tablet PO DAILY Discontinued ondansetron HCl [Zofran] 4 mg tablet 4 mg PO Q8H PRN (Reason: Nausea) ondansetron 4 mg tablet,disintegrating 4 mg PO Q8H PRN (Reason: nausea and vomiting) Qty: 14 0RF Date of admission: 08/29/22 17:09 Primary Care Provider: PHYSICIAN,BELT PRESS OPERATOR Admitting Provider: Jez Enamorado Attending physician on admission: Jez Enamorado Condition: Stable
--- NOTE | 2022-08-31 20:17 | PC.NURSE ---
1817 Pt went on a 4-6 hour pass to visit at [facility], ZEN Barroso drove.
[2022-08-31 22:05] VITALS: BP 130/76; PULSE 86; RESP 16; TEMP 36.6; O2SAT 100
--- NOTE | 2022-08-31 22:05 | PC.NURSE ---
Patient returned from [facility] to [place] to see infant.
[2022-09-01] MEDS: HYDROcodone/acetaminophen (*CRX) 10-325 MG TABLET 1 TAB PO ×2 (02:27→07:20)
[2022-09-01] MEDS: SIMETHICONE 80 MG TAB.CHEW PO (07:19)
[2022-09-01] MEDS: IBUPROFEN 600 MG TABLET PO (07:19)
[2022-09-01] MEDS: MULTIVIT/MIN/PREN/FOL AC/IRON TABLET 1 TAB PO (07:20)
[2022-09-01] MEDS: DOCUSATE SODIUM 100 MG CAPSULE PO (07:21)
[2022-09-01 07:30] VITALS: PULSE 72; RESP 14; O2SAT 100
[2022-09-01 07:45] VITALS: BP 102/53; PULSE 72; RESP 14; TEMP 36.3; O2SAT 100
--- NOTE | 2022-09-01 09:33 | PC.NURSE ---
On 09/01/22, the student, Candida Sainz, provided care and completed [facility] documentation on this patient. I have reviewed the student's documentation and agree with the findings.
--- NOTE | 2022-09-09 10:25 | PM.OBDSVD ---
DS: Admitting Diagnosis Discharge Date 09/01/22 Admitting Diagnosis OB - DS: Summary OB Procedures : None OB Procedures Intrapartum: OB Procedures: : None Peripartum Data Procedures: Procedures Operation Date: 08/29/22 18:30 Actual Procedure Side Surgeon p Section Bilateral Jez Enamorado MD Time Spent with Patient Time attestation: Total time spent providing and/or coordinating discharge services: DS: Data Data Completed and Pending Completed studies during hospitalization: Pending at discharge 08/29/22 22:11 Surgical [PTH] Routine Discharge Plan Discharge Consulting providers: Vanessa Campoverde ; Loy Miranda ; Felicitas Rivas Discharging Clinician: Jez Enamorado Patient Disposition: Home, Self-Care Activity: as tolerated Diet: as tolerated Discharge Instructions: Education: Mom and Baby Guide Given to: Mother Follow-Up: Call your delivering provider's office for an appointment to be seen in: 3 weeks Mom and baby should come to the [facility] for the follow-up appointment. Appointment Date/Time: September 02, 2022 at 10:00 am What to expect at your follow-up visit: Blood Pressure Check Physical Assessment Call [phone] if you are unable to keep your appointment time. BREAST CARE: * Wear a snug supportive bra. * For engorgement discomfort: Bottle Feeding: * May apply ice packs ABDOMINAL INCISION: (if applicable) * Allow incision to air dry * Do NOT use lotions for powders on your incision * When showering, allow soap and water to run over the incision, but do not wash incision Do not remove dressing Call office for a time to come in for dressing and staple removal EPISIOTOMY/PERINEAL CARE: * Until bleeding stops, use your amadou bottle after urinating * Change your pad frequently throughout the day * You may take sitz baths several times a day (fill your bathtub with warm water and soak for 20 minutes.) Do NOT bathe in the water * No tub baths until seen by your physician - You may shower ACTIVITY: * Rest as much as possible. * Do not exercise or lift anything heavier than your baby (such as laundry or other children.) * Avoid stairs or driving as much as possible. * Do not put anything into the vagina. No douching, tampons, or sexual activity until seen by physician. NOTIFY PHYSICIAN IF YOU HAVE ANY QUESTIONS OR IF ANY OF THE FOLLOWING SYMPTOMS OCCUR: * If your incision becomes red, swollen, or more painful than what you have experienced in the hospital. * If your vaginal bleeding becomes foul smelling. * If your vaginal bleeding becomes more heavy than a period or if your bleeding changes from pink to bright red. However, you may pass an occasional walnut-sized clot once or twice for the first week . * If you experience a sharp, shooting pain in your calves. * If you discover a hard, reddened area on your breast or if you experience flu-like symptoms. DIET: * Eat regular, well-balanced meals. * Drink plenty of fluids daily. If , drink to thirst. 1. Do not remove dressing 2. return Tuesday the office for dressing removal and staple. Stand Alone Forms: General Discharge Information Follow-up/Referrals: Jez Enamorado MD [Physician] - 3 Weeks Discharge Medications: New ibuprofen 600 mg Tablet 600 mg PO Q6H PRN (Reason: Cramping) Qty: 20 0RF Continued M- Plus 27 mg iron- 1 mg tablet 1 tablet PO DAILY Discontinued ondansetron HCl [Zofran] 4 mg tablet 4 mg PO Q8H PRN (Reason: Nausea) ondansetron 4 mg tablet,disintegrating 4 mg PO Q8H PRN (Reason: nausea and vomiting) Qty: 14 0RF No Action hydrocodone-acetaminophen 5-325 mg tablet 1 tablet PO Q4-6H Qty: 20 0RF Date of admission: 08/29/22 17:09 Primary Care Provider: PHYSICIAN,AWS SOFTWARE DEVELOPMENT ENGINEER Admitting Provider: Herminio Enamorado
== END 2022-09-01 09:50 | disposition home or self-care (01) | DRG 540 ==
LOC: ANHLDR 19:29 → ANHOB2 22:31
PROVIDERS: Admitting Provider Obstetrics & Gynecology; Visit Provider Obstetrics & Gynecology
PROC: 10D00Z1 Extraction of Products of Conception, Low, Open Approach (ICD-10-PCS; CPT 59514; principal; 2022-08-29 18:30)
DX: O34.211 Maternal care for low transverse scar from previous cesarean delivery (principal); O44.43 Low lying placenta NOS or without hemorrhage, third trimester; Z37.0 Single live birth; Z3A.35 35 weeks gestation of pregnancy
CPT/HCPCS: 36415; 80307; 85025; 86592; 86703; 86762; 86850; 86900; 86901; 87340; 88307; A9270; G0432; J0131; J0456; J2270; J2274; J2405; J2590; J7120

== ENCOUNTER 2022-11-04 02:38 | Day surgery (SDC) | payer OTHER, SELFPAY ==
[2022-10-28 09:37] VITALS: BMI 26.2
--- NOTE | 2022-10-28 09:41 | PC.NURSE ---
Report to the Outpatient Waiting Room, entrance under the green pavilion located off [facility], at time 0845 on date 11/04/22. Planned Procedure Time: 1045. Time changes happen often and if your time is changed the preop area will call you the afternoon before. - You and your visitor will be asked to self-screen and do not enter if you have any COVID symptoms. - Only one visitor is requested with a max of two and NO children visitors are allowed at this time. - The patient visitor may be requested to leave or wait in car when not with patient due to distancing restrictions. - A mask is REQUIRED within the hospital. Patients may have clear liquids (water, carbonated beverages, clear teas, apple juice) until 3 hours prior to surgery with a maximum of 20 ounces. - No food from midnight until time of surgery Take the following medications with a SIP of water the morning of surgery: N/A Medications to discontinue per physician: N/A Date to take last dose: N/A Please no make-up, nail syrian, hairspray, perfume, deodorant, or body powder the day of surgery. No jewelry (including any body piercings) or valuables the day of surgery, leave them at home. Please take a shower or bath the night before, or the morning of, surgery with an antibacterial soap. Wear comfortable, loose fitting clothing. - Jewelry must be removed prior to entering the operating room. Rings and piercings that are not removed may be cut off. - The hospital will not accept responsibility for valuables. - Please leave all valuables, including medications, at home the day of surgery. If you are going home after surgery, a licensed front end driver must drive you home. - NO public transportation without another adult if you receive anesthesia. - We recommend that an adult stay with you for 24 hours following discharge. - We also recommend that you do not drive, make important decision, drink alcoholic beverages, or take any drugs that were not prescribed by your health care provider for at least 24 hours after your discharge time. Follow any additional instructions given to you from your surgeon. If you or anyone in your household have experienced Covid symptoms in the past week, please notify your surgeon or the nurse liaison at the phone number below for possible testing. Telephone instructions given to PT - JERI FELDMAN and asked if any additional questions and then verbalized understanding. Patient advised to call surgeon office or pre surgery nurse liaison [phone] if any additional questions.
--- NOTE | 2022-11-03 14:51 | PM.IMHP ---
H&P: HPI History of Present Illness Date/Time: 11/03/22 14:51 27-year-old 3 para 3003 female presents for laparoscopic tubal ligation. We have discussed the permanence failure rate increased risk of ectopic and regret she states good understanding and desires to proceed. Her 3 deliveries have all been deliveries. Chief Complaint: Female sterilization Review of Systems Review of Systems: All systems reviewed & are unremarkable except as noted in HPI and below PMFSH Past Medical History Medical History Ankle fracture (~2004) Anxiety and depression Asthma Bipolar disorder Drug abuse History of 01/14/21 delivered at home @ 33.5 weeks Sandra IBS (irritable bowel syndrome) Nausea and vomiting during No care in current Placenta previa delivery after section Surgical History Surgical History Delivery by section (08/29/22) rpt c/s History of 03/06/08 primary c/s--prolonged bradycardia Sivan 10/15/16 rpt c/s Sravan no complications Family History Family History Father , From Fentanyl overdose Overdose of opiate or related narcotic Social History Social History Smoking packs per day: 0.5 Smoking cigarettes per day: 10.0 Years smoked: 14 Smoking pack-years: 7.00 Smoking status: Current every day smoker Tobacco type: cigarettes Second hand tobacco smoke exposure: Yes Additional smoking assessment comments: Has cut down to 1/2 PPD during Alcohol intake: current Drinks per week: 2 Substance use: current Substance use type: marijuana Other substance usage details: Marijuana Last use: 1 day ago Living arrangements: alone Spiritual care concerns: No Meds Home Medications and Allergies Home Medications Medication Instructions Recorded Confirmed Type norethindrone (contraceptive) 0.35 0.35 mg PO DAILY #84 tabs 10/05/22 10/28/22 Rx mg tablet ([facility]) Allergies Allergy/AdvReac Type Severity Reaction Status Date / Time No Known Allergies Allergy Verified 10/28/22 09:37 Exam Const: General: cooperative, healthy appearing and comfortable Resp: Effort & Inspection: normal respiratory effort Auscultation: clear to auscultation bilaterally Cardio: Rate: regular rate Rhythm: regular rhythm GI: Inspection: normal to inspection Auscultation: normal bowel sounds : External Female Exam: normal external appearance Speculum Exam - Vagina: normal appearance of the vagina Speculum Exam - Cervix: normal appearance of the cervix Bimanual exam- vagina & uterus: normal bimanual exam Bimanual Exam- Adnexa, other: normal adnexae Assessment and Plan Assessment and plan (1) Encounter for female sterilization procedure: Code(s): Z30.2 - Encounter for sterilization Status: Acute Plan proceed with laparoscopic bilateral tubal ligation via electrocautery.
[2022-11-04] VITALS (8 sets, daily range): BP systolic 99–119; BP diastolic 36–73; PULSE 51–81; RESP 12–17; TEMP 36.8–36.9; O2SAT 100
--- NOTE | 2022-11-04 07:26 | WPDANESEPPF ---
Anes - Initial Pre Proc Eval Procedure: Operation Date: 11/04/22 10:45 Proposed Procedures p Laparoscopic Bilateral Tubal Ligation - Jez Enamorado MD Date/Time: 11/04/22 07:26 Surgeon: Jez Enamorado MD Pre Op Diagnosis: desires sterilization Patient Data Age: 27 Gender: F Height: 1.6 m Weight: 67.2 kg Allergies Allergy/AdvReac Type Severity Reaction Status Date / Time No Known Allergies Allergy Verified 11/04/22 09:51 Home Medications Medication Instructions Recorded Confirmed Type norethindrone (contraceptive) 0.35 0.35 mg PO DAILY #84 tabs 10/05/22 10/28/22 Rx mg tablet ([facility]) Patient hx anesthesia problems: none Family hx anesthesia problems: none Results Review: All pre-operative results and documents have been reviewed as part of the pre-operative evaluation. [facility] Past Medical History Medical History Ankle fracture (~2004) Anxiety and depression Asthma Bipolar disorder Drug abuse History of 01/14/21 delivered at home @ 33.5 weeks Sandra IBS (irritable bowel syndrome) Nausea and vomiting during No care in current Placenta previa delivery after section Surgical History Surgical History Delivery by section (08/29/22) rpt c/s History of 03/06/08 primary c/s--prolonged bradycardia Sivan 10/15/16 rpt c/s Sravan no complications Family History Family History Father , From Fentanyl overdose Overdose of opiate or related narcotic Social History Social History Smoking packs per day: 0.5 Smoking cigarettes per day: 10.0 Years smoked: 14 Smoking pack-years: 7.00 Smoking status: Current every day smoker Tobacco type: cigarettes Second hand tobacco smoke exposure: Yes Additional smoking assessment comments: Has cut down to 1/2 PPD during Alcohol intake: current Drinks per week: 2 Substance use: current Substance use type: marijuana Other substance usage details: Marijuana Last use: 1 day ago Living arrangements: alone Spiritual care concerns: No Anes - Eval Final PreProcedure Day of Procedure 11/04/22 07:26 Patient weight: overweight Heart: regular rate and rhythm Lungs: clear to auscultation Airway: Mallampati scale class II Neurological: alert and oriented Last oral intake: >/= 8 hours ASA classification: III Emergent: no Anesthetic plan: proceed Anesthesia type and monitoring: general ETT and standard monitoring Results Review: All pre-operative results and documents have been reviewed as part of the pre-operative evaluation. Informed Consent: The patient's anesthetic plan and its attendant risks and benefits were discussed with the patient/family/POA. Questions were solicited and answers provided to the satisfaction of the patient/family/POA.
--- NOTE | 2022-11-04 08:02 | WPDHPUPDATE1 ---
History and Physical Update Update Date/Time: 11/04/22 08:02 History and Physical has been reviewed, including an updated exam of the patient. There are NO changes in the patient's condition. Risks, benefits, and alternatives have been discussed and questions answered. Patient agrees to proceed with procedure.
[2022-11-04] MEDS: KETOROLAC 15 MG/ML VIAL (*BKC) IV PUSH (09:00)
[2022-11-04] MEDS: LACTATED RINGERS 1,000 ML 30 ML IV CONT ×3 (09:00→12:29)
[2022-11-04] MEDS: ACETAMINOPHEN 500 MG TABLET 1000 MG PO (09:00)
--- NOTE | 2022-11-04 12:05 | W.PM.PROC2 ---
Procedure Note - Detailed Date of Procedure 11/04/22 Pre-op Diagnosis desires sterilization Post-op Diagnosis Same Procedure Performed 1. Laparoscopic bilateral tubal ligation via electrocautery Surgeon Jez Enamorado MD Anesthesia General Findings Uterus with adhesions to the anterior portion of the abdominal wall in the area of . Bilaterally tubes and ovaries without abnormality. Description of Procedure Patient prepped and draped usual manner for this procedure. Cervical instruments placed for uterine mobility throughout case. Periumbilical incision was made and trocars placed under direct visualization. This revealed findings as. Suprapubic incision was made and a 5mm trocar was placed. Using bipolar cautery either tube was cauterized places in 2 care taken not come because used. The past point gas was to escape trocars incisions were approximated using 4-0 Monocryl. Patient's Sourav in stable condition. Estimated Blood Loss 10 Drains No Packing No Pathology None sent Complications No immediate complications Condition Stable Disposition PACU [facility] Billing Surgery - Charge Forward: Surgery Billing
[2022-11-04] MEDS: fentaNYL CITRATE INJ (*CRX) 100 MCG/2 ML VIAL 25 MCG IV PUSH ×2 (12:21→13:07)
[2022-11-04] MEDS: ONDANSETRON INJ 4 MG/2 ML VIAL IV PUSH (12:24)
[2022-11-04] MEDS: oxyCODONE HCL (*CRX) 5 MG TAB IR PO (13:42)
== END 2022-11-04 14:20 | disposition home or self-care (01) ==
PROVIDERS: Visit Provider Obstetrics & Gynecology
PROC: (CPT 58671; principal; 2022-11-04 10:45)
DX: Z30.2 Encounter for sterilization (principal); F17.210 Nicotine dependence, cigarettes, uncomplicated; F12.90 Cannabis use, unspecified, uncomplicated
CPT/HCPCS: 58670; A9270; J1100; J1885; J2250; J2405; J2704; J3010; J7030; J7120

== ENCOUNTER 2023-03-07 16:25 | Emergency (ER) | payer OTHER, SELFPAY ==
--- NOTE | ~2023-03-07 | CT_ITS ---
EXAMINATION: CT abdomen pelvis w con DATE: 03/07/2023 19:46 INDICATION: diffuse twisting abd pain, hx pancreatitis TECHNIQUE: Computed tomography (CT) of the abdomen and pelvis was performed with 100 mL Omnipaque-350 intravenous contrast. Automated exposure control and iterative reconstruction technique were employe d. The dose-length product was 295.99 mGy-cm. COMPARISON: 06/09/2014. FINDINGS: Lower thorax: Unremarkable Liver: 2.4 cm left lobe hemangioma. Biliary/Gallbladder: Gallbladder is normal. No bile duct dilation. Pancreas: No mass or duct dilation. Spleen: Normal. Adrenals:No mass. Kidneys: No mass, stone, or hydronephrosis. Occluded right renal cyst. GI tract: Distal esophageal and gastric wall edema No small or large bowel dilation. Normal appendix. Mesentery/Peritoneum: No ascites, mass, or free air. Retroperitoneum: No mass. Pelvis: Pelvic organs are within normal limits. 1.9 cm simple left ovarian cyst. Soft Tissues: Soft tissues and body wall unremarkable. Bones: No acute osseous finding. IMPRESSION: Mild esophagitis/gastritis. Otherwise, no acute abdominopelvic process detected. Reviewed, dictated and finalized at location K. IMPRESSION: Mild esophagitis/gastritis. Otherwise, no acute abdominopelvic process detected .
[2023-03-07 16:40] VITALS: BP 132/71; PULSE 57; RESP 16; TEMP 37.1; O2SAT 99
--- NOTE | 2023-03-07 17:11 | ED.NAVMDI ---
HPI - Nausea/Vomiting/Diarrhea General Chief complaint: Nausea/Vomiting/Diarrhea Stated complaint: vomiting Time Seen by Provider: 03/07/23 16:55 History of Present Illness HPI Narrative: Patient is a 27-year-old female with a history of pancreatitis here for evaluation of abdominal pain, nausea and vomiting over the past 3 days. Patient states she has been unable to keep down any p.o. she also notes several episodes of diarrhea. States that her abdominal pain is described as a burning sensation in her lower esophagus and in her epigastric region. Has history of pancreatitis but states her pain is much less severe than that episode. She does admit to drinking a large amount of alcohol before her symptoms came on. Last meal she had was a cheeseburger. Denies sick contacts, fevers or chills. History of tubal ligation but no other abdominal surgeries. Related Data Allergies Allergy/AdvReac Type Severity Reaction Status Date / Time No Known Allergies Allergy Verified 03/07/23 16:43 Review of Systems Review of Systems: Gen: Denies fevers or chills Eyes: Denies eye pain or visual change ENT: Denies congestion Respiratory: Denies shortness of breath or cough CV: Denies chest pain or palpitations GI: Reports abdominal pain, nausea, vomiting and diarrhea : denies burning, urgency, frequency or hematuria Musculoskeletal: Denies back pain or muscle pain Neuro: Denies numbness, tingling, weakness or focal weakness Skin: Denies rash Except as documented, all other systems reviewed and negative [facility] Past Medical History Medical History Ankle fracture (~2004) Anxiety and depression Asthma Bipolar disorder Drug abuse History of 01/14/21 delivered at home @ 33.5 weeks Sandra IBS (irritable bowel syndrome) Nausea and vomiting during No care in current Placenta previa delivery after section Surgical History Surgical History Delivery by section (08/29/22) rpt c/s H/O tubal ligation (11/04/22) Laparoscopic bilateral tubal ligation via electrocautery History of 03/06/08 primary c/s--prolonged bradycardia Sivan 10/15/16 rpt c/s Sravan no complications Family History Family History Father , From Fentanyl overdose Overdose of opiate or related narcotic Social History Social History Smoking packs per day: 0.5 Smoking cigarettes per day: 10.0 Years smoked: 14 Smoking pack-years: 7.00 Smoking status: Current every day smoker Tobacco type: cigarettes Second hand tobacco smoke exposure: Yes Additional smoking assessment comments: Has cut down to 1/2 PPD during Alcohol intake: current Drinks per week: 2 Substance use: current Substance use type: marijuana Other substance usage details: Marijuana Last use: 1 day ago Living arrangements: alone Spiritual care concerns: No Exam Narrative: APPEARANCE: Well appearing, no pain in distress, well-nourished. Head: Normocephalic and atraumatic. EYES: PERRLA/EOMI, conjunctivae clear NOSE: No nasal drainage EARS: External ear normal in appearance THROAT: Oropharynx is clear. Mucous membranes are moist. NECK: Supple. No adenopathy, no masses. RESPIRATORY: Airway patent, respirations nonlabored. Clear to auscultation bilaterally, no rales, rhonchi, wheezing. CARDIOVASCULAR: Regular rate and rhythm without murmurs, rubs, or gallops. ABDOMINAL: Normoactive bowel sounds. Soft, nontender, nondistended. No rebound tenderness or guarding. MUSCULOSKELETAL: Extremities are warm and well-perfused. Moves all extremities well. No edema. NEURO: Normal speech. No focal neurologic deficits. SKIN: Skin is warm and dry. No rashes
[2023-03-07 17:25] LABS: Basophils Percent Auto 0.2 % (0.2-1.2); Hematocrit 39.4 % (37.0-47.0); Hemoglobin 12.6 g/dL (12.0-15.0); Immature Granulocyte Absolute 0.05 K/mm3 (0.00-0.031); Immature Granulocyte Percent A 0.4 % (0-0.5); Lymphocytes Absolute Auto 1.44 K/mm3 (0.9-3.2); Lymphocytes Percent Auto 11.3 % (18.3-44.2); Mean Corpuscular Hemoglobin 26.2 pg (26-34); Mean Corpuscular Volume 81.9 fl (80-100); Mean Platelet Volume 10.3 fl (7.4-10.4); Neutrophils Absolute Auto 10.2 K/mm3 (1.3-6.7); Neutrophils Percent Auto 80.1 % (45.5-73.1); Platelet Count Result 327 k/mm3 (150-375); Red Blood Count 4.81 M/mm3 (4.2-5.4); Red Cell Distribution Width 21.2 % (11.5-14.5); White Blood Count 12.7 K/mm3 (4.5-10.0)
[2023-03-07 17:30] LABS: Appearance Urine Cloudy (Clear); Bacteria Urine None Seen /hpf; Bilirubin Urine Negative (Negative); Blood Urine Negative (Negative); Color Urine Yellow (Yellow); Glucose Urine UA Negative (Negative); Ketones Urine 2+ mg/dL (Negative); Leukocyte Esterase Ur Negative LEU/UL (Negative); Nitrate Urine Negative (Negative); Non Pathogenic Casts 0-2; Protein Urine 1+ mg/dL (Negative); RBC Urine 0-2 /hpf (0-2); Specific Grav Ur 1.024 (1.001-1.035); Squamous Epithelial Cell Urine Few /hpf (Few); WBC Urine 0-5 /hpf; pH Urine 7.5 (5.0-9.0)
[2023-03-07 17:32] LABS: Add Urine Microscopic? YES
[2023-03-07] MEDS: LACTATED RINGERS 1,000 ML 999 ML IV CONT (17:34)
[2023-03-07 17:35] LABS: Alanine Aminotransferase 25 U/L (6-35); Albumin Level 5.5 g/dL (3.5-5.1); Alkaline Phosphatase 58 U/L (38-126); Anion Gap 14 mmol/L (8-16); Aspartate Amino Transferase 29 U/L (14-36); Bilirubin,Total 0.9 mg/dL (0.2-1.3); Blood Urea Nitrogen 13 mg/dL (7-17); Calcium 9.5 mg/dL (8.4-10.2); Carbon Dioxide 25 mmol/L (22-30); Chloride 99 mmol/L (98-107); Estimated CRCL calculation 85 ml/min; Estimated Glomerular Filt Rate > 60; Glucose 109 mg/dL (65-110); Lipase 97 U/L (23-300); Potassium 3.3 mmol/L (3.4-5.0); Sodium 138 mmol/L (137-145)
[2023-03-07] MEDS: ONDANSETRON INJ 4 MG/2 ML VIAL IV PUSH (17:35)
[2023-03-07] MEDS: FAMOTIDINE 20 MG/2 ML VIAL IV PUSH (17:35)
[2023-03-07] MEDS: DICYCLOMINE HCL INJ 20 MG/2 ML VIAL IM (17:38)
[2023-03-07] MEDS: POTASSIUM CHLORIDE 20 MEQ PACKET (FOR LIQUID) 40 MEQ PO (18:22)
[2023-03-07] MEDS: diphenhydrAMINE HCl INJ 50 MG/ML VIAL 25 MG IV PUSH (19:51)
[2023-03-07] MEDS: METOCLOPRAMIDE HCL INJ 10 MG/2 ML VIAL IV PUSH (19:51)
[2023-03-07 21:08] VITALS: BP 128/74; PULSE 61; RESP 16; O2SAT 99
== END 2023-03-07 21:09 | disposition home or self-care (01) ==
PROVIDERS: Preventive Medicine Aerospace Medicine; Emergency Provider Physician Assistant
DX: K29.70 Gastritis, unspecified, without bleeding (principal); F17.210 Nicotine dependence, cigarettes, uncomplicated; F41.9 Anxiety disorder, unspecified; F32.A Depression, unspecified; J45.909 Unspecified asthma, uncomplicated
CPT/HCPCS: 36415; 74177; 80053; 81001; 81025; 83690; 85025; 96361; 96372; 96374; 96375; 99284; A9270; J0500; J1200; J2405; J2765; J7120; Q9967